=== PATIENT | male | born 1945 | race Caucasian/White ===

== ENCOUNTER 2024-12-29 14:40 | Emergency (ER) | payer MEDICARE, OTHER, SELFPAY ==
--- NOTE | ~2024-12-29 | CT_ITS ---
EXAMINATION: CT brain wo [place], 12/29/2024 17:20 INDUSTRIAL HYGIENIST HISTORY: confusion COMPARISON: No comparisons available. Technique: Axial images obtained of the brain without contrast. One or more of the following dose reduction techniques were used: automated exposure control, adjustment of the mA and/or kV according to patient size, use of iterative reconstruction technique. 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 No acute infarct or hemorrhage. No midline shift or mass effect. No extra-axial fluid collections. Mastoid air cells unremarkable. Sinuses and orbits unremarkable. No acute fracture. No significant facial or scalp soft tissue swelling evident. No radiopaque foreign body is seen. Impression: 1.No acute intracranial abnormality. Reviewed, dictated and finalized at location P. STRIAL HYGIENIST Impression: 1.No acute intracranial abnormality.
--- NOTE | ~2024-12-29 | XR_ITS ---
EXAMINATION: XR chest 2V, 12/29/2024 15:34 [employer] EM[employer] AUTOMOTIVE TECHNICIAN HISTORY: SOB COMPARISON: No comparisons available. Technique: 2 views obtained. Findings: Mild pulmonary venous congestion. Trace bilateral pleural effusions. No pneumothorax. Mild cardiomegaly. Mediastinal and hilar contours are within normal limits. Poststernotomy. Left pacemaker. Impression: Mild CHF Reviewed, dictated and finalized at location P. [employer] AUTOMOTIVE TECHNICIAN Impression: Mild CHF
--- OUTSIDE RECORDS SUMMARY | 2024-12-29 14:43 | XMS_ITS | Encounter Summary ---
Author Organization [facility] Health Address [address] [address] Care Team Providers Care Director Of Psychology Name Role Phone Missy Hutson RN Unavailable González Rocha MD Unavailable Huber Nguyen MD Unavailable Damon Barakat MD Unavailable [phone] Ruma Parnell Primary Care Pr ovider Damon Barakat MD Unavailable [phone] Damon Barakat MD Unavailable [phone] Ruma Parnell Unavailable Encounter Details Date Type Department Care Team (Late st Contact Info) Description 11/09/2012 [facility] Damon Barakat MD [address] [facility] [address] [place] [address] Social History Tobacco Use Types Packs/Day Years Used Date Smoking Tobacco: Never Smokeless Tobacco: Never Alcohol Use Standard Drinks/Week Comments No 0 (1 standard drink = 0.6 oz pur e alcohol) rare Sex and Gender Information Value Date Recorded Sex Assigned at Not on file Legal Sex Male 8:54 AM CDT Gender Identity Not on file Sexual Orientation Not on file documented as of this encounter Plan of Treatment Upcoming Encounters Date Type Department Care Team (Late st Contact Info) Description 01/30/2025 7:00 AM GLOBAL LOGISTICS ANALYST Clinical Support [facility] [address] [place] [address] [address] [place] [address] 05/01/2025 7:00 AM CDT Clinical Support [facility] [address] [place] [address] [address] [place] [address] 05/16/2025 1:00 PM CDT Office Visit [facility] [address] [place] [address] [address] [place] [address] González Rocha MD [address] [place] [address] [place] [address] 07/31/2025 7:00 AM CDT Clinical Support [facility] [address] [place] [address] [address] [place] [address] documented as of this encounter Visit Diagnoses Not on filedocumented in this encounter Care Teams Director Of Psychology Relationship Specialty Start Date End Date Ruma Parnell PA [address] [place] [address] PCP - General Physician Fire Safety Manager 03/08/15 Damon Barakat MD [address] [place] [address] [place] [address] PCP - Attributed-MSSP 11/22/18 05/28/19 Damon Barakat MD [address] [place] [address] [place] [address] PCP - Attributed-MSSP 07/23/18 09/21/18 Ruma Parnell PA [address] [place] [address] PCP - Attributed-MSSP 09/22/18 11/21/18 Missy Hutson, RN Admissions Evaluator 12/29/13 González Rocha MD [address] [place] [address] [place] [address] Time Study Clerk Cardiology 02/02/14 Huber Nguyen MD [address] [place] [address] [place] [address] Consulting Physician Electrophysiology 02/02/14 Damon Barakat MD [address] [place] [address] [place] [address] Cardiovascular Disease 05/25/14 documented as of this encounter
--- OUTSIDE RECORDS SUMMARY | 2024-12-29 14:43 | XMS_ITS | Encounter Summary ---
Author Organization [facility] Health Address [address] [place] [address] Care Team Providers Care Emt I/99 Name Role Phone Missy Hutson RN Unavailable González Rocha MD Unavailable Huber Nguyen MD Unavailable Damon Barakat MD Unavailable [phone] Ruma Parnell Primary Care Pr ovider Damon Barakat MD Unavailable [phone] Damon Barakat MD Unavailable [phone] Ruma Parnell Unavailable Encounter Details Date Type Department Care Team (Late st Contact Info) Description 12/02/2012 [facility] Damon Barakat MD [address] [facility] [address] [place] [address] Social History Tobacco Use Types Packs/Day Years [...] st Contact Info) Description 01/30/2025 7:00 AM [employer] Clinical Support [facility] [address] [place] [address] [address] [place] [address] 05/01/2025 7:00 AM CDT Clinical Support [facility] [address] [place] [address] [address] [place] [address] 05/16/2025 1:00 PM CDT Office Visit [facility] [address] [place] [address] [address] [place] [address] González Rocha MD [address] [place] [address] [place] [address] 07/31/2025 7:00 AM CDT Clinical Support [facility] [address] [place] [address] [address] [place] [address] documented as of this encounter Visit Diagnoses Not on filedocumented in this encounter Care Teams Emt I/99 Relationship Specialty Start Date End Date Ruma Parnell PA [address] [place] [address] PCP - General Physician Vegetable Inspector 03/08/15 Damon Barakat MD [address] [place] [address] [place] [address] PCP - Attributed-MSSP 11/22/18 05/28/19 Damon Barakat MD [address] [place] [address] [place] [address] PCP - Attributed-MSSP 07/23/18 09/21/18 Ruma Parnell PA [address] [place] [address] PCP - Attributed-MSSP 09/22/18 11/21/18 Missy Hutson, RN Terminal Makeup Operator 12/29/13 González Rocha MD [address] [place] [address] [place] [address] Turning Lathe Tender Cardiology 02/02/14 Huber Nguyen MD [address] [place] [address] [place] [address] Consulting Physician Electrophysiology 02/02/14 Damon Barakat MD [address] [place] [address] [place] [address] Cardiovascular Disease 05/25/14 documented as of this encounter
[2024-12-29 14:44] VITALS: BP 121/68; PULSE 150; RESP 16; TEMP 38; O2SAT 95
--- OUTSIDE RECORDS SUMMARY | 2024-12-29 14:44 | XMS_ITS | Clinical Summary ---
Author Organization [facility] on Address [address] [facility] [place] [address] Phone Care Team Providers Care Nuts And Bolts Assembler Name Role Phone Ruma Smith Primary Care Provider [phone] Allergies Active Allergy Reactions Criticality Noted Date Comments Penicillins Hives High 11/02/2016 Medications acyclovir (ZOVIRAX) 400 mg tablet Take 400 mg by mouth 2 times daily. Active carvedilol (COREG) 6.25 mg tablet Take 6.25 mg by mouth 2 times daily with meals. Active LISINOPRIL ORAL Take by mouth. Active LORazepam (ATIVAN) 0.5 mg tablet Take 0.5 mg by mouth every 8 hours as needed for Anxiety. Active Social History Tobacco Use Types Packs/Day Years Used Date Smoking Tobacco: Never Smokeless Tobacco: Never Alcohol Use Standard Drinks/Week Comments No 0 (1 standard drink = 0.6 oz pur e alcohol) Sex and Gender Information Value Date Recorded Sex Assigned at Not on file Legal Sex Male 6:24 PM CDT Gender Identity Not on file Sexual Orientation Not on file Last Filed Vital Signs Vital Sign Reading Time Taken Comments Blood Pressure 111/76 11/02/2016 8:45 PM CDT Pulse 71 11/02/2016 8:45 PM CDT Temperature 36.7 C (98 F) 11/02/2016 6:53 PM CDT Respiratory Rate 18 11/02/2016 6:53 PM CDT Oxygen Saturation 100% 11/02/2016 8:45 PM CDT Inhaled Oxygen Concentration - - Weight 81.6 kg (180 lb) 11/02/2016 6:53 PM CDT Height 167.6 cm (5' 6) 11/02/2016 6:53 PM CDT Body Mass Index 29.05 11/02/2016 6:53 PM CDT Plan of Treatment Health Maintenance Due Date Last Done Comments DTAP/TDAP/TD VACCINES (1 - Tdap) 1965 PNEUMOCOCCAL VACCINE 50+ YEARS (1 of 1 - PCV) 12/25/18 97 ZOSTER VACCINE (1 of 2) 1996 RSV VACCINE (60+ or ) (1 - 1-dose 75+ series) 2021 INFLUENZA VACCINE (#1) 2024 Insurance MEDICARE PART A AND B [facility] Care Teams Nuts And Bolts Assembler Relationship Specialty Start Date End Date Ruma Smith PA PCP - General Physician Maintenance Mechanic [place] 11/02/16
--- OUTSIDE RECORDS SUMMARY | 2024-12-29 14:44 | XMS_ITS | Data Portability ---
Author Organization [facility], Main Office Address [address] [place] [address] Care Team Providers Care Window Dresser Name Role Phone RUMA SMITH Primary Care Provider [phone] RMUA SMITH Referring Provider [phone] Assessment Encounter Date Assessment Date Assessment LastModified by Organization Details LastModified Time 02/01/2023 02/01/2023 Colonoscopy 2019. Not available 02/01/2023 11:30:04 Plan of Treatment Reminders Order Date Submit Date Provider Last Modified By Organization Details Last Modified Time Details Appointments None recorded. Lab lipid panel, serum 2022 023 [facility], [address], [address], [place], [address], 3 05:45:22 HbA1c (hemoglobin A1c), blood 2022 023 [facility], [address], [address], [place], [address], 3 05:45:24 hepatic function panel, serum 2022 023 [facility], [address], [address], [place], [address], 3 05:45:25 CBC w/ auto diff 2022 023 [facility], [address], [address], [place], [address], 3 05:45:26 TSH + free T4, serum 2022 023 [facility], [address], [address], [place], [address], 3 05:45:20 PSA, serum or plasma 2022 023 [facility], [address], [address], [place], [address], 3 05:45:27 BMP, serum or plasma 2022 023 [facility], [address], [address], [place], [address], 3 05:45:[address] referral 2022 023 [email or web address], [address] [place] [address], [address], 4 09:13:57 general surgeon referral - Please call pt to schedule appt. Thank you 2022 023 [email or web address] 7 Aileen Sanderson MD, [address] [facility], [facility] [address], [place], [address], 3 10:08:40 Procedures None recorded. Surgeries None recorded. Imaging None recorded. Medication Orders lorazepam 0.5 mg tablet 2022 023 [facility], [address] [place] [address], [address], 3 13:24:55 tramadol 50 mg tablet 2022 023 [facility], [facility] [place], [address], 3 13:24:55 Patient TargetsNo targets recorded. Patient Instructions Encounter Date Encounter Id Patient Instructions Last Modified By Organization Details Last Modified Time 07/31/2022 [id number] dementia rating scale-2* [email or web address] Not available 07/31/2022 11:48:38 multi-dimensiona l health assessment questionnaire* gil Not available 07/31/2022 11:48:43 care plan* [email or web address] Not available 11:48:47 advance care planning: care instructions Not available 07/31/2022 10:51:02 advance directiv es: care instructions Not available 07/31/2022 10:51:02 [place] Advance Directives Not available 07/31/2022 10:51:02 Personalized a lt Plan and Screening Recommendations Advance Directives - Do you have one? Yes Advance Directives - Do we have your advance directive on file in your health record? No, please bring in a copy at your earliest convenience Primary Prevention/Interven tion (prevents or decreases the chance of common diseases from occurring) Smoking Risk: Non Smoker Alcohol Misuse Screening: Negative Weight: Appropriate Physical activity: Appropriate physical activity Nutrition: Average Fall Risk (screened today): Low Vaccines Pneumococcal: No further needed Influenza: Your next one in the fall of this year Chronic Disease Risks Stroke: High Risk Active diagnosis, Continue current treatment plan Heart Attack: High Risk Active diagnosis, Continue current treatment plan Clogging of the Arteries: High risk Active diagnosis, Continue current treatment plan Diabetes: High Risk Active diagnosis, Continue current treatment plan Secondary Prevention/Interven tion (detects treatable diseases before they may cause symptoms, disability, or ) Prostate Cancer Screening: Your next PSA in: nov 2022 Colon Cancer Screening: Colonoscopy In: 2018 Date Screening Last Performed: Eye Disease Screening: Recommended today Dementia Risk: Low Depression Screening: Negative Active diagnosis, Continue current treatment plan Not available 08/19/2022 22:52:42 Reason for Referral General Surgeon Referral for Cholelithiasis without obstruction Please call pt to schedule appt. Thank you Referring Physician: Ruma Smith, Internal Medicine, Encounter Date: 05/08/2022 Fixed Income Manager Referral for L esion of skin of face Referring Physician: Ruma Smith, Internal Medicine, Encounter Date: 02/01/2023 Results Created Date Observation Date Name Description Value Unit Range Abnormal Flag Note LastModifiedBy Organization Detail LastModifiedTime 06/28/19 22 06/28/2021 CBC (INCL UDES DIFF/ PLT) white blood cell count 4.8 thous and/u L 3.8-10 .8 normal Not Available [address], [address], 06/28/2021 04:03:54 06/28/19 22 06/28/2021 CBC (INCL UDES DIFF/ PLT) red blood cell count 4.18 marie on/uL 4.20-5 .80 low Not Available [facility] [address], [address], 06/28/2021 04:03:54 06/28/19 22 06/28/2021 CBC (INCL UDES DIFF/ PLT) hemoglobin 12.7 g/dL 13.2-1 7.1 low Not Available [facility] [address], [address], 06/28/2021 04:03:54 06/28/19 22 06/28/2021 CBC (INCL UDES DIFF/ PLT) hematocrit 39.0 % 38.5-5 0.0 normal Not Available [facility] [address], [address], 06/28/2021 04:03:54 06/28/19 22 06/28/2021 CBC (INCL UDES DIFF/ PLT) MCV 93.3 fL 80.0-1 00.0 normal Not Available [facility] [address], [address], 06/28/2021 04:03:54 06/28/19 22 06/28/2021 CBC (INCL UDES DIFF/ PLT) MCH 30.4 pg 27.0-3 3.0 normal Not Available [facility] [address], [address], 06/28/2021 04:03:54 06/28/19 22 06/28/2021 CBC (INCL UDES DIFF/ PLT) MCHC 32.6 g/dL 32.0-3 6.0 normal Not Available [address], [address], 06/28/2021 04:03:54 06/28/19 22 06/28/2021 CBC (INCL UDES DIFF/ PLT) RDW 12.9 % 11.0-1 5.0 normal Not Available [address], [address], 06/28/2021 04:03:54 06/28/19 22 06/28/2021 CBC (INCL UDES DIFF/ PLT) platelet count 170 thous and/u L 140-40 0 normal Not Available [address], [address], 06/28/2021 04:03:54 06/28/19 22 06/28/2021 CBC (INCL UDES DIFF/ PLT) MPV 11.7 fL 7.5-12 .5 normal Not Available [address], [address], 06/28/2021 04:03:54 06/28/19 22 06/28/2021 CBC (INCL UDES DIFF/ PLT) absolute neutrophils 3221 cells /uL 1500-7 800 normal Not Available [address], [address], 06/28/2021 04:03:54 06/28/19 22 06/28/2021 CBC (INCL UDES DIFF/ PLT) absolute lymphocytes 1013 cells /uL 850-39 00 normal Not Available [address], [address], 06/28/2021 04:03:54 06/28/19 22 06/28/2021 CBC (INCL UDES DIFF/ PLT) absolute monocytes 394 cells /uL 200-95 0 normal Not Available [facility] [address], [address], 06/28/2021 04:03:54 06/28/19 22 06/28/2021 CBC (INCL UDES DIFF/ PLT) absolute eosinophils 101 cells /uL 15-500 normal Not Available [facility] [address], [address], 06/28/2021 04:03:54 06/28/19 22 06/28/2021 CBC (INCL UDES DIFF/ PLT) absolute basophils 72 cells /uL 0-200 normal Not Available [facility] [address], [address], 06/28/2021 04:03:54 06/28/19 22 06/28/2021 CBC (INCL UDES DIFF/ PLT) neutrophils 67.1 % normal Not Available [facility] [address], [address], 06/28/2021 04:03:54 06/28/19 22 06/28/2021 CBC (INCL UDES DIFF/ PLT) lymphocytes 21.1 % normal Not Available [facility] [address], [address], 06/28/2021 04:03:54 06/28/19 22 06/28/2021 CBC (INCL UDES DIFF/ PLT) monocytes 8.2 % normal Not Available [facility] [address], [address], 06/28/2021 04:03:54 06/28/19 22 06/28/2021 CBC (INCL UDES DIFF/ PLT) eosinophils 2.1 % normal Not Available [facility] [address], [address], 06/28/2021 04:03:54 06/28/19 22 06/28/2021 CBC (INCL UDES DIFF/ PLT) basophils 1.5 % normal Your reque st to have a dupli kennedy copy faxed has been rayna wledg ed. Queue d to: [phone] Not Available [address], [address], 06/28/2021 04:03:54 06/28/19 22 06/28/2021 HEPAT IC FUNCT ION PANEL protein, total 6.3 g/dL 6.1-8. 1 normal Not Available [address], [address], 06/28/2021 04:03:54 06/28/19 22 06/28/2021 HEPAT IC FUNCT ION PANEL albumin 4.0 g/dL 3.6-5. 1 normal Not Available [address], [address], 06/28/2021 04:03:54 06/28/19 22 06/28/2021 HEPAT IC FUNCT ION PANEL globulin 2.3 g/dL_ (calc ) 1.9-3. 7 normal Not Available [address], [address], 06/28/2021 04:03:54 06/28/19 22 06/28/2021 HEPAT IC FUNCT ION PANEL albumin/glob ulin ratio 1.7 (calc ) 1.0-2. 5 normal Not Available [address], [address], 06/28/2021 04:03:54 06/28/19 22 06/28/2021 HEPAT IC FUNCT ION PANEL bilirubin, total 0.7 mg/dL 0.2-1. 2 normal Not Available [address], [address], 06/28/2021 04:03:54 06/28/19 22 06/28/2021 HEPAT IC FUNCT ION PANEL bilirubin, direct 0.1 mg/dL < or = 0.2 normal Not Available [facility] - [address], [address], 06/28/2021 04:03:54 06/28/19 22 06/28/2021 HEPAT IC FUNCT ION PANEL bilirubin, indirect 0.6 mg/dL _(shawn c) 0.2-1. 2 normal Not Available [address], [address], 06/28/2021 04:03:54 06/28/19 22 06/28/2021 HEPAT IC FUNCT ION PANEL alkaline phosphatase 83 U/L 35-144 normal Not Available [facility] [address], [address], 06/28/2021 04:03:54 06/28/19 22 06/28/2021 HEPAT IC FUNCT ION PANEL AST 14 U/L 10-35 normal Not Available [address], [address], 06/28/2021 04:03:54 06/28/19 22 06/28/2021 HEPAT IC FUNCT ION PANEL ALT 7 U/L 9-46 low Not Available [facility] [address], [address], 06/28/2021 04:03:54 06/28/19 22 06/28/2021 BASIC METAB OLIC PANEL glucose 98 mg/dL 65-99 normal Fasti ng refer ence inter genie Not Available [address], [address], 06/28/2021 04:03:54 06/28/19 22 06/28/2021 BASIC METAB OLIC PANEL urea nitrogen (BUN) 15 mg/dL 7-25 normal Not Available [facility] [address], [address], 06/28/2021 04:03:54 06/28/19 22 06/28/2021 BASIC METAB OLIC PANEL creatinine 1.41 mg/dL 0.70-1 .18 high For patie nts >49 years of age, the refer ence limit for Creat inine is appro ximat javed 13% highe r for peopl e ident ified as Afric an-Am srinivasa n. Not Available [address], [address], 06/28/2021 04:03:54 06/28/19 22 06/28/2021 BASIC METAB OLIC PANEL eGFR non-afr. macedonian 49 mL/mi n/1.7 3m2 > or = 60 low Not Available [facility] [address], [address], 06/28/2021 04:03:54 06/28/19 22 06/28/2021 BASIC METAB OLIC PANEL eGFR 56 mL/mi n/1.7 3m2 > or = 60 low Not Available [address], [address], 06/28/2021 04:03:54 06/28/19 22 06/28/2021 BASIC METAB OLIC PANEL BUN/creatini ne ratio 11 (calc ) 6-22 normal Not Available [address], [address], 06/28/2021 04:03:54 06/28/19 22 06/28/2021 BASIC METAB OLIC PANEL sodium 138 mmol/ L 135-14 6 normal Not Available [address], [address], 06/28/2021 04:03:54 06/28/19 22 06/28/2021 BASIC METAB OLIC PANEL potassium 4.6 mmol/ L 3.5-5. 3 normal Not Available [address], [address], 06/28/2021 04:03:54 06/28/19 22 06/28/2021 BASIC METAB OLIC PANEL chloride 104 mmol/ L 98-110 normal Not Available [address], [address], 06/28/2021 04:03:54 06/28/19 22 06/28/2021 BASIC METAB OLIC PANEL carbon dioxide 29 mmol/ L 20-32 normal Not Available [address], [address], 06/28/2021 04:03:54 06/28/19 22 06/28/2021 BASIC METAB OLIC PANEL calcium 8.9 mg/dL 8.6-10 .3 normal Not Available [address], [address], 06/28/2021 04:03:54 06/28/19 22 06/28/2021 LIPID PANEL WITH RATIO S cholesterol, total 152 mg/dL <200 normal Not Available [address], [address], 06/28/2021 04:03:53 06/28/19 22 06/28/2021 LIPID PANEL WITH RATIO S HDL cholesterol 57 mg/dL > or = 40 normal Not Available [address], [address], 06/28/2021 04:03:53 06/28/19 22 06/28/2021 LIPID PANEL WITH RATIO S triglyceride s 75 mg/dL <150 normal Not Available [address], [address], 06/28/2021 04:03:53 06/28/19 22 06/28/2021 LIPID PANEL WITH RATIO S LDL-choleste rol 79 mg/dL _(shawn c) normal Refer ence range : <100 Edgardo able range <100 mg/dL for prima ry preve ntion ; <70 mg/dL for patie nts with CHD or diabe tic patie nts with > or = 2 CHD risk facto rs. LDL-C is now calcu lated using the Amaris n-Hop kins calcu tram n, which is a valid ated novel metho d provi champ velazquezte r accur acy than the Fried andrae equat ion in the estim ation of LDL-C . Amaris n SS et al. MANUEL. 2013; 310(1 9): 2061- 2068 (http ://ed ucati on.Qu itzelVilma concepciónSt. Teresa Medical. com/f aq/FA Q164) Not Available [facility] [address] [address] [place], [address], 06/28/2021 04:03:53 06/28/19 22 06/28/2021 LIPID PANEL WITH RATIO S chol/HDLC ratio 2.7 (calc ) <5.0 normal Not Available [facility] [address], [address], 06/28/2021 04:03:53 06/28/19 22 06/28/2021 LIPID PANEL WITH RATIO S LDL/HDL ratio 1.4 (calc ) Below [place] ge Risk: <2.28 [place] ge Risk: 2.29- 4.90 Moder ate Risk: 4.91- 7.12 High Risk: >7.13 Not Available [facility] [address] [address] [facility] [place], [address], 06/28/2021 04:03:53 06/28/19 22 06/28/2021 LIPID PANEL WITH RATIO S non HDL cholesterol 95 mg/dL _(shawn c) <130 normal For patie nts with diabe denisse plus 1 major ASCVD risk facto r, treat ing to a non-H DL-C goal of <100 mg/dL (LDL- C of <70 mg/dL ) is consi dered a thera peuti c optio n. Not Available [employer] [address] [address] [place], [address], 06/28/2021 04:03:53 01/10/20 22 01/10/2022 URINA LYSIS , COMPL ETE color dark yellow yellow normal Not Available [employer] [address] [address] [place], [address], 01/10/2022 08:48:59 01/10/20 22 01/10/2022 URINA LYSIS , COMPL ETE appearance cloudy clear abnormal Not Available [address], [address], 01/10/2022 08:48:59 01/10/20 22 01/10/2022 URINA LYSIS , COMPL ETE specific gravity 1.021 1.001- 1.035 normal Not Available [address], [address], 01/10/2022 08:48:59 01/10/20 22 01/10/2022 URINA LYSIS , COMPL ETE pH 6.0 5.0-8. 0 normal Not Available [address], [address], 01/10/2022 08:48:59 01/10/20 22 01/10/2022 URINA LYSIS , COMPL ETE glucose 2+ negati ve abnormal Not Available [address], [address], 01/10/2022 08:48:59 01/10/20 22 01/10/2022 URINA LYSIS , COMPL ETE bilirubin 1+ negati ve abnormal Presu mptiv e posit gregg bilir ubin. Consi saad confi rmati on by serum bilir ubin if clini son indic ated. Not Available [address], [address], 01/10/2022 08:48:59 01/10/20 22 01/10/2022 URINA LYSIS , COMPL ETE ketones trace negati ve abnormal Not Available [address], [address], 01/10/2022 08:48:59 01/10/20 22 01/10/2022 URINA LYSIS , COMPL ETE occult blood negati ve negati ve normal Not Available [address], [place], [address], 01/10/2022 08:48:59 01/10/20 22 01/10/2022 URINA LYSIS , COMPL ETE protein 2+ negati ve abnormal Not Available [address], [address], 01/10/2022 08:48:59 01/10/20 22 01/10/2022 URINA LYSIS , COMPL ETE nitrite negati ve negati ve normal Not Available [address], [address], 01/10/2022 08:48:59 01/10/20 22 01/10/2022 URINA LYSIS , COMPL ETE leukocyte esterase trace negati ve abnormal Not Available [address], [address], 01/10/2022 08:48:59 01/10/20 22 01/10/2022 URINA LYSIS , COMPL ETE WBC 0-5 /hpf < or = 5 normal Not Available [address], [address], 01/10/2022 08:48:59 01/10/20 22 01/10/2022 URINA LYSIS , COMPL ETE RBC none seen /hpf < or = 2 normal Not Available [address], [address], 01/10/2022 08:48:59 01/10/20 22 01/10/2022 URINA LYSIS , COMPL ETE squamous epithelial cells 6-10 /hpf < or = 5 abnormal Not Available [address], [address], 01/10/2022 08:48:59 01/10/20 22 01/10/2022 URINA LYSIS , COMPL ETE bacteria none seen /hpf none seen normal Not Available [address], [address], 01/10/2022 08:48:59 01/10/20 22 01/10/2022 URINA LYSIS , COMPL ETE hyaline cast > 60 /lpf none seen abnormal Not Available [address], [address], 01/10/2022 08:48:59 01/10/20 22 01/10/2022 CBC (INCL UDES DIFF/ PLT) white blood cell count 6.4 thous and/u L 3.8-10 .8 normal Not Available [address], [address], 01/10/2022 08:48:58 01/10/20 22 01/10/2022 CBC (INCL UDES DIFF/ PLT) red blood cell count 4.32 marie on/uL 4.20-5 .80 normal Not Available [address], [address], 01/10/2022 08:48:58 01/10/20 22 01/10/2022 CBC (INCL UDES DIFF/ PLT) hemoglobin 13.5 g/dL 13.2-1 7.1 normal Not Available [address], [address], 01/10/2022 08:48:58 01/10/20 22 01/10/2022 CBC (INCL UDES DIFF/ PLT) hematocrit 39.2 % 38.5-5 0.0 normal Not Available [address], [address], 01/10/2022 08:48:58 01/10/20 22 01/10/2022 CBC (INCL UDES DIFF/ PLT) MCV 90.7 fL 80.0-1 00.0 normal Not Available [address], [address], 01/10/2022 08:48:58 01/10/20 22 01/10/2022 CBC (INCL UDES DIFF/ PLT) MCH 31.3 pg 27.0-3 3.0 normal Not Available [address], [address], 01/10/2022 08:48:58 01/10/20 22 01/10/2022 CBC (INCL UDES DIFF/ PLT) MCHC 34.4 g/dL 32.0-3 6.0 normal Not Available [address], [address], 01/10/2022 08:48:58 01/10/20 22 01/10/2022 CBC (INCL UDES DIFF/ PLT) RDW 12.3 % 11.0-1 5.0 normal Not Available [address], [address], 01/10/2022 08:48:58 01/10/20 22 01/10/2022 CBC (INCL UDES DIFF/ PLT) platelet count 198 thous and/u L 140-40 0 normal Not Available [address], [address], 01/10/2022 08:48:58 01/10/20 22 01/10/2022 CBC (INCL UDES DIFF/ PLT) MPV 12.0 fL 7.5-12 .5 normal Not Available [address], [address], 01/10/2022 08:48:58 01/10/20 22 01/10/2022 CBC (INCL UDES DIFF/ PLT) absolute neutrophils 4320 cells /uL 1500-7 800 normal Not Available [address], [address], 01/10/2022 08:48:58 01/10/20 22 01/10/2022 CBC (INCL UDES DIFF/ PLT) absolute lymphocytes 1222 cells /uL 850-39 00 normal Not Available [address] [place], [address], 01/10/2022 08:48:58 01/10/20 22 01/10/2022 CBC (INCL UDES DIFF/ PLT) absolute monocytes 691 cells /uL 200-95 0 normal Not Available [facility] [address], [address], 01/10/2022 08:48:58 01/10/20 22 01/10/2022 CBC (INCL UDES DIFF/ PLT) absolute eosinophils 83 cells /uL 15-500 normal Not Available [facility] [address], [address], 01/10/2022 08:48:58 01/10/20 22 01/10/2022 CBC (INCL UDES DIFF/ PLT) absolute basophils 83 cells /uL 0-200 normal Not Available [facility] [address], [address], 01/10/2022 08:48:58 01/10/20 22 01/10/2022 CBC (INCL UDES DIFF/ PLT) neutrophils 67.5 % normal Not Available [address], [address], 01/10/2022 08:48:58 01/10/20 22 01/10/2022 CBC (INCL UDES DIFF/ PLT) lymphocytes 19.1 % normal Not Available [address], [address], 01/10/2022 08:48:58 01/10/20 22 01/10/2022 CBC (INCL UDES DIFF/ PLT) monocytes 10.8 % normal Not Available [address], [address], 01/10/2022 08:48:58 01/10/20 22 01/10/2022 CBC (INCL UDES DIFF/ PLT) eosinophils 1.3 % normal Not Available [facility] [address] [place], [address], 01/10/2022 08:48:58 01/10/20 22 01/10/2022 CBC (INCL UDES DIFF/ PLT) basophils 1.3 % normal Not Available [address], [address], 01/10/2022 08:48:58 01/10/20 22 01/10/2022 T4, FREE T4, free 1.4 NG/dL 0.8-1. 8 normal Not Available [address], [address], 01/10/2022 08:48:58 01/10/20 22 01/10/2022 TSH TSH 1.60 mIU/L 0.40-4 .50 normal Not Available [address], [address], 01/10/2022 08:48:57 01/10/20 22 01/10/2022 HEPAT IC FUNCT ION PANEL protein, total 6.9 g/dL 6.1-8. 1 normal Not Available [address], [address], 01/10/2022 08:48:57 01/10/20 22 01/10/2022 HEPAT IC FUNCT ION PANEL albumin 4.0 g/dL 3.6-5. 1 normal Not Available [address], [address], 01/10/2022 08:48:57 01/10/20 22 01/10/2022 HEPAT IC FUNCT ION PANEL globulin 2.9 g/dL_ (calc ) 1.9-3. 7 normal Not Available [address], [address], 01/10/2022 08:48:57 01/10/20 22 01/10/2022 HEPAT IC FUNCT ION PANEL albumin/glob ulin ratio 1.4 (calc ) 1.0-2. 5 normal Not Available [address] [address] [place], [address], 01/10/2022 08:48:57 01/10/20 22 01/10/2022 HEPAT IC FUNCT ION PANEL bilirubin, total 1.0 mg/dL 0.2-1. 2 normal Not Available [address] [address] [place], [address], 01/10/2022 08:48:57 01/10/20 22 01/10/2022 HEPAT IC FUNCT ION PANEL bilirubin, direct 0.2 mg/dL < or = 0.2 normal Not Available [address] [address] [place], [address], 01/10/2022 08:48:57 01/10/2001/10/2022 HEPAT IC FUNCT ION PANEL bilirubin, indirect 0.8 mg/dL _(shawn c) 0.2-1. 2 normal Not Available [address] [address] [place], [address], 01/10/2022 08:48:57 01/10/20 22 01/10/2022 HEPAT IC FUNCT ION PANEL alkaline phosphatase 88 U/L 35-144 normal Not Available [facility] [address] [address] [place], [address], 01/10/2022 08:48:57 01/10/20 22 01/10/2022 HEPAT IC FUNCT ION PANEL AST 13 U/L 10-35 normal Not Available [address] [address] [place], [address], 01/10/2022 08:48:57 01/10/20 22 01/10/2022 HEPAT IC FUNCT ION PANEL ALT 7 U/L 9-46 low Not Available [address] [address] [place], [address], 01/10/2022 08:48:57 01/10/20 22 01/10/2022 BASIC METAB OLIC PANEL potassium 4.7 mmol/ L 3.5-5. 3 normal Not Available [address], [address], 01/10/2022 08:48:57 01/10/20 22 01/10/2022 BASIC METAB OLIC PANEL chloride 103 mmol/ L 98-110 normal Not Available [address], [address], 01/10/2022 08:48:57 01/10/20 22 01/10/2022 BASIC METAB OLIC PANEL carbon dioxide 26 mmol/ L 20-32 normal Not Available [address], [address], 01/10/2022 08:48:57 01/10/2001/10/2022 BASIC METAB OLIC PANEL calcium 9.1 mg/dL 8.6-10 .3 normal Not Available [address], [address], 01/10/2022 08:48:57 01/10/20 22 01/10/2022 BASIC METAB OLIC PANEL glucose 75 mg/dL 65-99 normal Fasti ng refer ence inter genie Not Available [address], [address], 01/10/2022 08:48:57 01/10/20 22 01/10/2022 BASIC METAB OLIC PANEL urea nitrogen (BUN) 16 mg/dL 7-25 normal Not Available [address], [address], 01/10/2022 08:48:57 01/10/20 22 01/10/2022 BASIC METAB OLIC PANEL creatinine 2.03 mg/dL 0.70-1 .28 high Not Available [address], [address], 01/10/2022 08:48:57 01/10/20 22 01/10/2022 BASIC METAB OLIC PANEL eGFR 34 mL/mi n/1.7 3m2 > or = 60 low The eGFR is based on the CKD-E PI 2020 equat ion. To calcu late the new eGFR from a previ ous Creat inine or Cysta tin C resul t, go to https ://richardson peña.evelyn shah.o yary/kishor douglasess derrickal s/ kdoqi /gfr% 5Fcal culat or Not Available [address] [address] [place], [address], 01/10/2022 08:48:57 01/10/20 22 01/10/2022 BASIC METAB OLIC PANEL BUN/creatini ne ratio 8 (calc ) 6-22 normal Not Available [address] [address] [place], [address], 01/10/2022 08:48:57 01/10/20 22 01/10/2022 BASIC METAB OLIC PANEL sodium 138 mmol/ L 135-14 6 normal Not Available [address] [address] [place], [address], 01/10/2022 08:48:57 01/10/20 22 01/10/2022 LIPID PANEL WITH RATIO S cholesterol, total 148 mg/dL <200 normal Not Available [facility] [address] [address] [place], [address], 01/10/2022 08:48:56 01/10/20 22 01/10/2022 LIPID PANEL WITH RATIO S HDL cholesterol 51 mg/dL > or = 40 normal Not Available [facility] [address] [address] [place], [address], 01/10/2022 08:48:56 01/10/20 22 01/10/2022 LIPID PANEL WITH RATIO S triglyceride s 92 mg/dL <150 normal Not Available [employer] [place] [address] [place], [address], 01/10/2022 08:48:56 01/10/20 22 01/10/2022 LIPID PANEL WITH RATIO S LDL-choleste rol 79 mg/dL _(shawn c) normal Refer ence range : <100 Edgardo able range <100 mg/dL for prima ry preve ntion ; <70 mg/dL for patie nts with CHD or diabe tic patie nts with > or = 2 CHD risk facto rs. LDL-C is now calcu lated using the Amaris n-Hop kins calcu tram n, which is a valid ated novel kimberleyo d reidi champ ender r accur acy than the Fried andrae equat ion in the estim ation of LDL-C . Amaris orozco SS et al. MANUEL. 2013; 310(1 9): 2061- 2068 (http ://ed ucati on.Qu itzelCodeNgo. com/f aq/FA Q164) Not Available [employer] [facility] [address] [place], [address], 01/10/2022 08:48:56 01/10/2001/10/2022 LIPID PANEL WITH RATIO S chol/HDLC ratio 2.9 (calc ) <5.0 normal Not Available [employer] [facility] [address] [place], [address], 01/10/2022 08:48:56 01/10/20 22 01/10/2022 LIPID PANEL WITH RATIO S LDL/HDL ratio 1.5 (calc ) Below [place] ge Risk: <2.28 [place] ge Risk: 2.29- 4.90 Moder ate Risk: 4.91- 7.12 High Risk: >7.13 Not Available [employer] [facility] [address] [place], [address], 01/10/2022 08:48:56 01/10/2001/10/2022 LIPID PANEL WITH RATIO S non HDL cholesterol 97 mg/dL _(shawn c) <130 normal For patie nts with diabe denisse plus 1 major ASCVD risk facto r, treat ing to a non-H DL-C goal of <100 mg/dL (LDL- C of <70 mg/dL ) is consi johnnyd a thera peuti alvaro optio n. Not Available [facility] [address] [place] [address] [place], [address], 01/10/2022 08:48:56 07/23/1907/23/2022 LIPID PANEL , STAND HERMINIO cholesterol, total 161 mg/dL <200 normal Not Available [facility] [address] [address] [place], [address], 07/23/2022 07:45:48 07/23/19 23 07/23/2022 LIPID PANEL , STAND HERMINIO HDL cholesterol 58 mg/dL > or = 40 normal Not Available [facility] [address] [place] [address] [place], [address], 07/23/2022 07:45:48 07/23/19 23 07/23/2022 LIPID PANEL , STAND HERMINIO triglyceride s 73 mg/dL <150 normal Not Available [facility] [address] [address] [address], [place], [address], 07/23/2022 07:45:48 07/23/1907/23/2022 LIPID PANEL , STAND HERMINIO LDL-choleste rol 87 mg/dL _(shawn c) normal Refer ence range : <100 Edgardo able range <100 mg/dL for prima ry preve ntion ; <70 mg/dL for patie nts with CHD or diabe tic patie nts with > or = 2 CHD risk facto rs. LDL-C is now calcu lated using the Amaris n-Hop kins calcu latnathanael n, which is a valid ated novel metho d provi ding ender r accur acy than the Fried andrae equat ion in the estim ation of LDL-C . Amaris orozco SS et al. MANUEL. 2013; 310(1 9): 2061- 2068 (http ://ed ucati on.Qu estDi concepciónStocard tics. com/f aq/FA Q164) Not Available [facility] [address] [address] [place], [address], 07/23/2022 07:45:48 07/23/19 23 07/23/2022 LIPID PANEL , STAND HERMINIO chol/HDLC ratio 2.8 (calc ) <5.0 normal Not Available [facility] [address] [place], [address], 07/23/2022 07:45:48 07/23/19 23 07/23/2022 LIPID PANEL , STAND HERMINIO non HDL cholesterol 103 mg/dL _(shawn c) <130 normal For patie nts with diabe denisse plus 1 major ASCVD risk facto r, treat ing to a non-H DL-C goal of <100 mg/dL (LDL- C of <70 mg/dL ) is consi dered a thera peuti c optio n. Not Available [facility] [address] [place] [address] [place], [address], 07/23/2022 07:45:48 07/23/1907/23/2022 BASIC METAB OLIC PANEL glucose 102 mg/dL 65-99 high Fasti ng refer ence inter genie For someo ne witho ut known diabe denisse, a gluco se value betwe en 100 and 125 mg/dL is consi stent with predi abete s and shoul d be confi rmed with a follo w-up test. Not Available [facility] [address] [place] [address] [place], [address], 07/23/2022 07:45:48 07/23/1907/23/2022 BASIC METAB OLIC PANEL urea nitrogen (BUN) 15 mg/dL 7-25 normal Not Available [facility] [address] [address] [place], [address], 07/23/2022 07:45:48 07/23/1907/23/2022 BASIC METAB OLIC PANEL creatinine 1.73 mg/dL 0.70-1 .28 high Not Available [facility] [address] [place] [address] [place], [address], 07/23/2022 07:45:48 07/23/1907/23/2022 BASIC METAB OLIC PANEL eGFR 41 mL/mi n/1.7 3m2 > or = 60 low The eGFR is based on the CKD-E PI 2020 equat ion. To calcu late the new eGFR from a previ ous Creat inine or Cysta tin C resul t, go to https ://richardson peña.evelyn shah.o yary/kishor ofess ional s/ kdoqi /gfr% 5Fcal culat or Not Available [address] [address] [place], [address], 07/23/2022 07:45:48 07/23/1907/23/2022 BASIC METAB OLIC PANEL BUN/creatini ne ratio 9 (calc ) 6-22 normal Not Available [address] [address] [place], [address], 07/23/2022 07:45:48 07/23/19 23 07/23/2022 BASIC METAB OLIC PANEL sodium 136 mmol/ L 135-14 6 normal Not Available [address] [address] [place], [address], 07/23/2022 07:45:48 07/23/1907/23/2022 BASIC METAB OLIC PANEL potassium 4.7 mmol/ L 3.5-5. 3 normal Not Available [employer] [address] [address] [place], [address], 07/23/2022 07:45:48 07/23/1907/23/2022 BASIC METAB OLIC PANEL chloride 104 mmol/ L 98-110 normal Not Available [employer] [address] [address] [place], [address], 07/23/2022 07:45:48 07/23/19 23 07/23/2022 BASIC METAB OLIC PANEL carbon dioxide 25 mmol/ L 20-32 normal Not Available [employer] [address] [address] [place], [address], 07/23/2022 07:45:48 07/23/19 23 07/23/2022 BASIC METAB OLIC PANEL calcium 9.0 mg/dL 8.6-10 .3 normal Not Available [address], [address], 07/23/2022 07:45:48 07/23/19 23 07/23/2022 HEPAT IC FUNCT ION PANEL protein, total 6.5 g/dL 6.1-8. 1 normal Not Available [address], [address], 07/23/2022 07:45:49 07/23/1907/23/2022 HEPAT IC FUNCT ION PANEL albumin 4.0 g/dL 3.6-5. 1 normal Not Available [address], [address], 07/23/2022 07:45:49 07/23/19 23 07/23/2022 HEPAT IC FUNCT ION PANEL globulin 2.5 g/dL_ (calc ) 1.9-3. 7 normal Not Available [address], [address], 07/23/2022 07:45:49 07/23/1907/23/2022 HEPAT IC FUNCT ION PANEL albumin/glob ulin ratio 1.6 (calc ) 1.0-2. 5 normal Not Available [address], [address], 07/23/2022 07:45:49 07/23/19 23 07/23/2022 HEPAT IC FUNCT ION PANEL bilirubin, total 0.7 mg/dL 0.2-1. 2 normal Not Available [address], [address], 07/23/2022 07:45:49 07/23/19 23 07/23/2022 HEPAT IC FUNCT ION PANEL bilirubin, direct 0.2 mg/dL < or = 0.2 normal Not Available [address], [address], 07/23/2022 07:45:49 07/23/1907/23/2022 HEPAT IC FUNCT ION PANEL bilirubin, indirect 0.5 mg/dL _(shawn c) 0.2-1. 2 normal Not Available [address], [address], 07/23/2022 07:45:49 07/23/19 23 07/23/2022 HEPAT IC FUNCT ION PANEL alkaline phosphatase 87 U/L 35-144 normal Not Available [facility] [address], [address], 07/23/2022 07:45:49 07/23/1907/23/2022 HEPAT IC FUNCT ION PANEL AST 13 U/L 10-35 normal Not Available [address], [address], 07/23/2022 07:45:49 07/23/1907/23/2022 HEPAT IC FUNCT ION PANEL ALT 8 U/L 9-46 low Not Available [address], [address], 07/23/2022 07:45:49 07/23/1907/23/2022 TSH TSH 2.07 mIU/L 0.40-4 .50 normal Not Available [address], [address], 07/23/2022 07:45:50 07/23/1907/23/2022 T4, FREE T4, free 1.2 NG/dL 0.8-1. 8 normal Not Available [address], [address], 07/23/2022 07:45:50 07/23/19 23 07/23/2022 CBC (INCL UDES DIFF/ PLT) white blood cell count 4.9 thous and/u L 3.8-10 .8 normal Not Available [address], [address], 07/23/2022 07:45:51 07/23/19 23 07/23/2022 CBC (INCL UDES DIFF/ PLT) red blood cell count 4.28 marie on/uL 4.20-5 .80 normal Not Available [address], [address], 07/23/2022 07:45:51 07/23/19 23 07/23/2022 CBC (INCL UDES DIFF/ PLT) hemoglobin 13.1 g/dL 13.2-1 7.1 low Not Available [address], [address], 07/23/2022 07:45:51 07/23/19 23 07/23/2022 CBC (INCL UDES DIFF/ PLT) hematocrit 39.1 % 38.5-5 0.0 normal Not Available [address], [address], 07/23/2022 07:45:51 07/23/19 23 07/23/2022 CBC (INCL UDES DIFF/ PLT) MCV 91.4 fL 80.0-1 00.0 normal Not Available [employer] [address], [address], 07/23/2022 07:45:51 07/23/1907/23/2022 CBC (INCL UDES DIFF/ PLT) MCH 30.6 pg 27.0-3 3.0 normal Not Available [employer] [address], [address], 07/23/2022 07:45:51 07/23/19 23 07/23/2022 CBC (INCL UDES DIFF/ PLT) MCHC 33.5 g/dL 32.0-3 6.0 normal Not Available [employer] [address] [place], [address], 07/23/2022 07:45:51 07/23/1907/23/2022 CBC (INCL UDES DIFF/ PLT) RDW 13.0 % 11.0-1 5.0 normal Not Available [address], [address], 07/23/2022 07:45:51 07/23/19 23 07/23/2022 CBC (INCL UDES DIFF/ PLT) platelet count 174 thous and/u L 140-40 0 normal Not Available [address], [address], 07/23/2022 07:45:51 07/23/1907/23/2022 CBC (INCL UDES DIFF/ PLT) MPV 10.8 fL 7.5-12 .5 normal Not Available [address], [address], 07/23/2022 07:45:51 07/23/1907/23/2022 CBC (INCL UDES DIFF/ PLT) absolute neutrophils 3180 cells /uL 1500-7 800 normal Not Available [address], [address], 07/23/2022 07:45:51 07/23/19 23 07/23/2022 CBC (INCL UDES DIFF/ PLT) absolute lymphocytes 1098 cells /uL 850-39 00 normal Not Available [address], [address], 07/23/2022 07:45:51 07/23/1907/23/2022 CBC (INCL UDES DIFF/ PLT) absolute monocytes 431 cells /uL 200-95 0 normal Not Available [address], [address], 07/23/2022 07:45:51 07/23/19 23 07/23/2022 CBC (INCL UDES DIFF/ PLT) absolute eosinophils 113 cells /uL 15-500 normal Not Available [address], [address], 07/23/2022 07:45:51 07/23/19 23 07/23/2022 CBC (INCL UDES DIFF/ PLT) absolute basophils 78 cells /uL 0-200 normal Not Available [facility] [address], [address], 07/23/2022 07:45:51 07/23/19 23 07/23/2022 CBC (INCL UDES DIFF/ PLT) neutrophils 64.9 % normal Not Available [address], [address], 07/23/2022 07:45:51 07/23/19 23 07/23/2022 CBC (INCL UDES DIFF/ PLT) lymphocytes 22.4 % normal Not Available [facility] [address], [address], 07/23/2022 07:45:51 07/23/19 23 07/23/2022 CBC (INCL UDES DIFF/ PLT) monocytes 8.8 % normal Not Available [facility] [address], [address], 07/23/2022 07:45:51 07/23/19 23 07/23/2022 CBC (INCL UDES DIFF/ PLT) eosinophils 2.3 % normal Not Available [address], [address], 07/23/2022 07:45:51 07/23/19 23 07/23/2022 CBC (INCL UDES DIFF/ PLT) basophils 1.6 % normal Not Available [address], [address], 07/23/2022 07:45:51 01/22/20 23 01/22/2023 TSH+F REE T4 TSH 3.18 mIU/L 0.40-4 .50 normal Not Available [address], [address], 01/22/2023 05:45:20 01/22/20 23 01/22/2023 TSH+F REE T4 T4, free 1.4 NG/dL 0.8-1. 8 normal Not Available [address], [address], 01/22/2023 05:45:20 01/22/20 23 01/22/2023 LIPID PANEL , STAND HERMINIO cholesterol, total 154 mg/dL <200 normal Not Available [address], [address], 01/22/2023 05:45:22 01/22/20 23 01/22/2023 LIPID PANEL , STAND HERMINIO HDL cholesterol 52 mg/dL > or = 40 normal Not Available [address], [address], 01/22/2023 05:45:22 01/22/20 23 01/22/2023 LIPID PANEL , STAND HERMINIO triglyceride s 101 mg/dL <150 normal Not Available [address], [address], 01/22/2023 05:45:22 01/22/20 23 01/22/2023 LIPID PANEL , STAND HERMINIO LDL-choleste rol 83 mg/dL _(shawn c) normal Refer ence range : <100 Edgardo able range <100 mg/dL for prima ry preve ntion ; <70 mg/dL for patie nts with CHD or diabe tic patie nts with > or = 2 CHD risk facto rs. LDL-C is now calcu lated using the Amaris n-Hop kins calcu tram n, which is a valid ated novel metho d provi ding ender r accur acy than the Fried andrae equat ion in the estim ation of LDL-C . Amaris orozco SS et al. MANUEL. 2013; 310(1 9): 2061- 2068 (http ://ed ucati on.Qu Luis Carlos beebefromAtoBs. com/f aq/FA Q164) Not Available [facility] [address] [place] [address] [facility] [place], [address], 01/22/2023 05:45:22 01/22/20 23 01/22/2023 LIPID PANEL , STAND HERMINIO chol/HDLC ratio 3.0 (calc ) <5.0 normal Not Available [facility] [address] [address] [address], [place], [address], 01/22/2023 05:45:22 01/22/20 23 01/22/2023 LIPID PANEL , STAND HERMINIO non HDL cholesterol 102 mg/dL _(shawn c) <130 normal For patie nts with diabe denisse plus 1 major ASCVD risk facto r, treat ing to a non-H DL-C goal of <100 mg/dL (LDL- C of <70 mg/dL ) is consi dered a thera peuti c optio n. Not Available [address] [place] [address] [facility] [place], [address], 01/22/2023 05:45:22 01/22/2001/22/2023 BASIC METAB OLIC PANEL glucose 100 mg/dL 65-99 high Fasti ng refer ence inter genie For someo ne witho ut known diabe denisse, a gluco se value betwe en 100 and 125 mg/dL is consi stent with predi abete s and shoul d be confi rmed with a follo w-up test. Not Available [facility] [address] [address] [address], [place], [address], 01/22/2023 05:45:23 01/22/20 23 01/22/2023 BASIC METAB OLIC PANEL urea nitrogen (BUN) 20 mg/dL 7-25 normal Not Available [facility] [address] [place] [address] [place], [address], 01/22/2023 05:45:23 01/22/20 23 01/22/2023 BASIC METAB OLIC PANEL creatinine 1.81 mg/dL 0.70-1 .28 high Not Available [address], [address], 01/22/2023 05:45:23 01/22/20 23 01/22/2023 BASIC METAB OLIC PANEL eGFR 38 mL/mi n/1.7 3m2 > or = 60 low Not Available [address], [address], 01/22/2023 05:45:23 01/22/20 23 01/22/2023 BASIC METAB OLIC PANEL BUN/creatini ne ratio 11 (calc ) 6-22 normal Not Available [address], [address], 01/22/2023 05:45:23 01/22/20 23 01/22/2023 BASIC METAB OLIC PANEL sodium 136 mmol/ L 135-14 6 normal Not Available [address], [address], 01/22/2023 05:45:23 01/22/20 23 01/22/2023 BASIC METAB OLIC PANEL potassium 4.1 mmol/ L 3.5-5. 3 normal Not Available [address], [address], 01/22/2023 05:45:23 01/22/20 23 01/22/2023 BASIC METAB OLIC PANEL chloride 104 mmol/ L 98-110 normal Not Available [address], [address], 01/22/2023 05:45:23 01/22/20 23 01/22/2023 BASIC METAB OLIC PANEL carbon dioxide 24 mmol/ L 20-32 normal Not Available [address], [address], 01/22/2023 05:45:23 01/22/20 23 01/22/2023 BASIC METAB OLIC PANEL calcium 8.9 mg/dL 8.6-10 .3 normal Not Available [address], [address], 01/22/2023 05:45:23 01/22/20 23 01/22/2023 HEMOG LOBIN A1C hemoglobin A1C 5.7 %_of_ total _HGB <5.7 high For someo ne witho ut known diabe denisse, a hemog lobin A1c value betwe en 5.7% and 6.4% is consi stent with predi abete s and shoul d be confi rmed with a follo w-up test. For someo ne with known diabe denisse, a value <7% indic ates that their diabe denisse is well contr olled . A1c targe ts shoul d be indiv idual ized based on durat ion of diabe denisse, age, comor bid condi tions , and other consi derat ions. This assay resul t is consi stent with an incre ased risk of diabe denisse. Curre ntly, no conse nsus exist s regar ding use of hemog lobin A1c for diagn osis of diabe denisse for child josesito. Not Available [address], [address], 01/22/2023 05:45:24 01/22/20 23 01/22/2023 HEPAT IC FUNCT ION PANEL protein, total 6.6 g/dL 6.1-8. 1 normal Not Available [facility] [address] [address] [place], [address], 01/22/2023 05:45:25 01/22/20 23 01/22/2023 HEPAT IC FUNCT ION PANEL albumin 3.9 g/dL 3.6-5. 1 normal Not Available [facility] [address] [place], [address], 01/22/2023 05:45:25 01/22/20 23 01/22/2023 HEPAT IC FUNCT ION PANEL globulin 2.7 g/dL_ (calc ) 1.9-3. 7 normal Not Available [address] [address] [place], [address], 01/22/2023 05:45:25 01/22/20 23 01/22/2023 HEPAT IC FUNCT ION PANEL albumin/glob ulin ratio 1.4 (calc ) 1.0-2. 5 normal Not Available [address], [address], 01/22/2023 05:45:25 01/22/20 23 01/22/2023 HEPAT IC FUNCT ION PANEL bilirubin, total 0.5 mg/dL 0.2-1. 2 normal Not Available [address] [address] [place], [address], 01/22/2023 05:45:25 01/22/20 23 01/22/2023 HEPAT IC FUNCT ION PANEL bilirubin, direct 0.1 mg/dL < or = 0.2 normal Not Available [address] [address] [place], [address], 01/22/2023 05:45:25 01/22/20 23 01/22/2023 HEPAT IC FUNCT ION PANEL bilirubin, indirect 0.4 mg/dL _(shawn c) 0.2-1. 2 normal Not Available [address] [address] [place], [address], 01/22/2023 05:45:25 01/22/20 23 01/22/2023 HEPAT IC FUNCT ION PANEL alkaline phosphatase 91 U/L 35-144 normal Not Available [facility] [address] [address] [place], [address], 01/22/2023 05:45:25 01/22/20 23 01/22/2023 HEPAT IC FUNCT ION PANEL AST 12 U/L 10-35 normal Not Available [address], [address], 01/22/2023 05:45:25 01/22/20 23 01/22/2023 HEPAT IC FUNCT ION PANEL ALT 7 U/L 9-46 low Not Available [employer] [address], [address], 01/22/2023 05:45:25 01/22/20 23 01/22/2023 CBC (INCL UDES DIFF/ PLT) white blood cell count 5.4 thous and/u L 3.8-10 .8 normal Not Available [address], [address], 01/22/2023 05:45:26 01/22/20 23 01/22/2023 CBC (INCL UDES DIFF/ PLT) red blood cell count 4.10 marie on/uL 4.20-5 .80 low Not Available [address], [address], 01/22/2023 05:45:26 01/22/20 23 01/22/2023 CBC (INCL UDES DIFF/ PLT) hemoglobin 12.4 g/dL 13.2-1 7.1 low Not Available [employer] [address], [address], 01/22/2023 05:45:26 01/22/20 23 01/22/2023 CBC (INCL UDES DIFF/ PLT) hematocrit 37.6 % 38.5-5 0.0 low Not Available [address], [address], 01/22/2023 05:45:26 01/22/20 23 01/22/2023 CBC (INCL UDES DIFF/ PLT) MCV 91.7 fL 80.0-1 00.0 normal Not Available [address], [address], 01/22/2023 05:45:26 01/22/20 23 01/22/2023 CBC (INCL UDES DIFF/ PLT) MCH 30.2 pg 27.0-3 3.0 normal Not Available [address], [address], 01/22/2023 05:45:26 01/22/20 23 01/22/2023 CBC (INCL UDES DIFF/ PLT) MCHC 33.0 g/dL 32.0-3 6.0 normal Not Available [address], [address], 01/22/2023 05:45:26 01/22/20 23 01/22/2023 CBC (INCL UDES DIFF/ PLT) RDW 12.4 % 11.0-1 5.0 normal Not Available [address], [address], 01/22/2023 05:45:26 01/22/20 23 01/22/2023 CBC (INCL UDES DIFF/ PLT) platelet count 168 thous and/u L 140-40 0 normal Not Available [address], [address], 01/22/2023 05:45:26 01/22/20 23 01/22/2023 CBC (INCL UDES DIFF/ PLT) MPV 11.4 fL 7.5-12 .5 normal Not Available [address], [address], 01/22/2023 05:45:26 01/22/20 23 01/22/2023 CBC (INCL UDES DIFF/ PLT) absolute neutrophils 3391 cells /uL 1500-7 800 normal Not Available [employer] [address], [address], 01/22/2023 05:45:26 01/22/20 23 01/22/2023 CBC (INCL UDES DIFF/ PLT) absolute lymphocytes 1210 cells /uL 850-39 00 normal Not Available [address], [address], 01/22/2023 05:45:26 01/22/20 23 01/22/2023 CBC (INCL UDES DIFF/ PLT) absolute monocytes 578 cells /uL 200-95 0 normal Not Available [facility] [address], [address], 01/22/2023 05:45:26 01/22/20 23 01/22/2023 CBC (INCL UDES DIFF/ PLT) absolute eosinophils 130 cells /uL 15-500 normal Not Available [facility] [address], [address], 01/22/2023 05:45:26 01/22/20 23 01/22/2023 CBC (INCL UDES DIFF/ PLT) absolute basophils 92 cells /uL 0-200 normal Not Available [facility] [address], [address], 01/22/2023 05:45:26 01/22/20 23 01/22/2023 CBC (INCL UDES DIFF/ PLT) neutrophils 62.8 % normal Not Available [facility] [address], [address], 01/22/2023 05:45:26 01/22/20 23 01/22/2023 CBC (INCL UDES DIFF/ PLT) lymphocytes 22.4 % normal Not Available [address], [address], 01/22/2023 05:45:26 01/22/20 23 01/22/2023 CBC (INCL UDES DIFF/ PLT) monocytes 10.7 % normal Not Available [facility] [address], [address], 01/22/2023 05:45:26 01/22/20 23 01/22/2023 CBC (INCL UDES DIFF/ PLT) eosinophils 2.4 % normal Not Available [facility] [address], [address], 01/22/2023 05:45:26 01/22/20 23 01/22/2023 CBC (INCL UDES DIFF/ PLT) basophils 1.7 % normal Not Available [facility] [facility] [address] [place], [address], 01/22/2023 05:45:26 01/22/20 23 01/22/2023 PSA, TOTAL PSA, total 1.22 NG/mL < or = 4.00 normal The total PSA value from this assay syste m is stand ardiz ed again st the WHO stand herminio. The test resul t will be appro ximat javed 20% lower when edwin red to the equim olar- stand ardiz ed total PSA (Rahman man Coult er). Edwin rison of seria l PSA resul ts shoul d be inter prete d with this fact in mind. This test was perfo rmed using the Sieme ns chemi lumin escen t metho d. Value s obtai sia from diffe rent assay metho ds canno t be used inter espinoza eably . PSA level s, regar dless of value , shoul d not be inter prete d as absol cullen evide nce of the prese nce or absen ce of disea se. Not Available [employer] [facility] [address] [place], [address], 01/22/2023 05:45:27 Result Notes None recorded. Problems Name Problem SNOMED Code Status Onset Date Resolution Date Notes Provider Name and Address Organization Details Recorded Time Blood glucose outside reference range 810999023 Active Not Available [facility] 3 04:52:24 Anxiety disorder 935005145 Active Not Available [employer] 3 04:52:24 Gastroesop hageal reflux disease 039790039 Active Not Available [employer] 3 04:52:24 Lumbar spondylosi s 108107486 Active Not Available [facility] 3 04:52:25 Mixed hyperlipid emia 757755512 Active Not Available [facility] 3 04:52:25 Genital herpes simplex 16213765 Active Not Available [facility] 3 04:52:25 Osteoarthr itis 848647203 Active Not Available [facility] 3 04:52:25 Pharyngiti s 688641989 Active Not Available [facility] 3 04:52:25 Chronic kidney disease stage 1 631388685 Active Not Available [facility] 3 04:52:25 Chronic systolic heart failure 531344092 Active Not Available [facility] 3 04:52:25 Pain of shoulder region 93213575 Active Not Available [facility] 3 04:52:25 Primary erectile dysfunctio n 629212316 Active Not Available [facility] 3 04:52:25 Atrial fibrillati on 52108378 Active Not Available [facility] 3 04:52:26 Coronary arterioscl erosis 01960992 Active Not Available [facility] 3 04:52:26 Chronic kidney disease 226242723 Active Not Available [facility] 3 04:52:26 Slowing of urinary stream 65873582 Active Not Available [facility] 3 04:52:26 Upper respirator y infection 93637726 Active 2021 Not Available [facility] 3 04:52:26 Cholelithi asis without obstructio n 15937387 Active 2022 MIKAYLA Saldivar [address] [facility], [place] [address], [place], [address] , [employer] 3 12:24:14 Lesion of skin of face 665362556551 Active 2022 MIKAYLA Saldivar [address] [employer], [place], [address] , [employer] 3 11:48:58 Problem Notes None recorded. Procedures Surgical History Date Name Laterality Status Provider Name and Address Organization Details Recorded Time 023 Medicare Wellness CPT Code, subsequent completed Anusha Holliday RN [facility] [employer] 07/31/2022 10:16:27 019 Colonoscopy completed Not Available [facility] 04/22/2022 04:41:38 014 Cardiovascular Surgery completed Not Available [facility] 04/22/2022 04:41:38 013 Gastrointestinal Surgery completed Not Available [facility] 04/22/2022 04:41:38 013 Cardiovascular Surgery completed Not Available [facility] 04/22/2022 04:41:38 Imaging Results None recorded. Procedure Notes None recorded. Medical Equipment None Reported. Allergies Allergen ID Allergen Name Allergen Category Reaction Reaction Severity Criticality Documentation Date Start Date Code Code System Note Provider Name and Address Organization Details Recorded Time 8258 Product containin g penicilli n (product) medicatio n hives Not available Not available 04/22/2022 12804 8001 SNOMED Not Available [facility] 05:04:24 Medications Name Sig Start Date Stop Date Status Note LastModified by Organization Details LastModified Time furosemide 40 mg tablet PRN active Not Available Not Available Not Available carvedilol 6.25 mg tablet Take 1 tablet twice a day by oral route for 90 days. 08/08 completed Not Available Not Available Not Available atorvastat in 20 mg tablet TAKE 1 TABLET DAILY active Not Available Not Available No t Available carvedilol 12.5 mg tablet Take 0.5 tablets twice a day by oral route for 90 days. active Not Available Not Available No t Available azithromyc in 250 mg tablet active Not Available Not Available Not Available hydrocodon e 5 mg-acetami nophen 325 mg tablet 07/01 completed Not Available Not Available Not Available prednisone 20 mg tablet 01/26 completed Not Available Not Available Not Available clindamyci n HCl 150 mg capsule 06/30 completed Not Available Not Available Not Available Molly Low Dose Aspirin 81 mg tablet,del ayed release Take 1 tablet every day by oral route. 07/25 completed Not Available Not Available Not Available clopidogre l 75 mg tablet TK 1 T PO QD 07/28 completed Not Available Not Available Not Available acyclovir 400 mg tablet TAKE 2 TABLETS DAILY active Not Available Not Available No t Available peg-electr olyte solution 420 gram oral solution 07/26 completed Not Available Not Available Not Available tramadol 50 mg tablet Take 1 tablet every 4-6 hours by oral route as needed. active Not Available Not Available No t Available spironolac tone 25 mg tablet 1/2 tab po daily 07/25 completed Not Available Not Available Not Available carvedilol 3.125 mg tablet active Not Available Not Available Not Available prednisolo ne acetate 1 % eye drops,susp ension INSTILL 1 DROP INTO LEFT EYE THREE TIMES DAILY THEN TAPER DIRECTED 01/29 completed Not Available Not Available Not Available lorazepam 0.5 mg tablet TAKE 3 TABLETS BY MOUTH EVERY NIGHT AT BEDTIME active Not Available Not Available No t Available tamsulosin 0.4 mg capsule Take 1 capsule every day by oral route. active Not Available Not Available No t Available pantoprazo le 40 mg tablet,del ayed release TAKE 1 TABLET DAILY active Not Available Not Available No t Available clotrimazo le-betamet hasone 1 %-0.05 % topical cream 07/01 completed Not Available Not Available Not Available warfarin 2 mg tablet TK ONE T PO FOR 1 DOSE ON 08/24. 01/27 completed Not Available Not Available Not Available warfarin 5 mg tablet 01/27 completed Not Available Not Available Not Available magnesium citrate oral solution DRINK DIRECTED BY MD 07/28 completed Not Available Not Available Not Available lisinopril 5 mg tablet Take 1 tablet every day by oral route for 90 days. active Not Available Not Available No t Available digoxin 125 mcg (0.125 mg) tablet 02/01 completed Not Available Not Available Not Available furosemide 20 mg tablet PRN 02/01 completed Not Available Not Available Not Available cefuroxime axetil 500 mg tablet TAKE 1 TABLET BY MOUTH EVERY 12 HOURS 01/29 completed Not Available Not Available Not Available ipratropiu m bromide 42 mcg (0.06 %) nasal spray [place] by nasal route as directed for 16 days. active Not Available Not Available No t Available eplerenone 25 mg tablet 02/01 completed Not Available Not Available Not Available Eliquis 5 mg tablet Take 1 tablet twice a day by oral route. active Not Available Not Available No t Available Jardiance 10 mg tablet active Not Available Not Available Not Available Entresto 49 mg-51 mg tablet 07/31 completed taking 24-26mg Not Available Not Available Not Available Entresto 24 mg-26 mg tablet active Not Available Not Available No t Available Fluzone High-Dose (PF) 180 mcg/0.5 mL intramuscu lar syringe TO BE ADMINIST ERED BY PHARMACI ST FOR IMMUNIZA TION active Not Available Not Available No t Available Fluad 65yr up(PF)45 mcg(15 mcgx3)/0.5 mL intramuscu lar syringe RPH TO ADM 0.5ML IM UTD 01/27 completed Not Available Not Available Not Available Fluzone High-Dose 1320-9160 (PF) 180 mcg/0.5 mL intramuscu lar syringe ADM 0.5ML IM UTD 01/27 completed Not Available Not Available Not Available Fluzone High-Dose 2018- (PF) 180 mcg/0.5 mL intramuscu lar syringe ADM 0.5ML IM UTD 07/25 completed Not Available Not Available Not Available Fluzone High-Dose Quad (PF) 240 mcg/0.7 mL IM syringe PHARMACY ADMINIST ERED 02/07 completed Not Available Not Available Not Available Vitals Date Recorded Body height Body temperature Body mass index (BMI) Body weight Heart rate Oxygen saturation Oxygen saturation in Arterial blood by Pulse oximetry Systolic And Diastolic Provider Name and Address Organization Details Last Updated DateTime 3 167.64 cm 97.1 [degF] 25.3 kg/m2 87308 g 64 /min 97 % 97 % 136/74 mm[Hg] Anusha Holliday RN [place] [facility] [place] [email or web address] 3 12:01:18 Date Recorded Body mass index (BMI) Body height Oxygen saturation Oxygen saturation in Arterial blood by Pulse oximetry Heart rate Respiratory rate Body temperature Body weight Systolic And Diastolic Provider Name and Address Organization Details Last Updated DateTime 2 25.3 kg/m2 167.64 cm 98 % 98 % 67 /min 16 /min 98 [degF] 33564 g 108/60 mm[Hg] Not Available [facility] 3 04:50:18 Date Recorded Body height Body mass index (BMI) Body weight Body temperature Heart rate Oxygen saturation Oxygen saturation in Arterial blood by Pulse oximetry Systolic And Diastolic Provider Name and Address Organization Details Last Updated DateTime 3 167.64 cm 25 kg/m2 23025.8 2 g 98.1 [degF] 58 /min 99 % 99 % 124/64 mm[Hg] Anusha Holliday RN [place] [employer] [facility] Angella Joy 3 10:25:34 Date Recorded Body mass index (BMI) Body height Heart rate Respiratory rate Body temperature Body weight Systolic And Diastolic Provider Name and Address Organization Details Last Updated DateTime 2 24.9 kg/m2 167.64 cm 68 /min 16 /min 97.3 [degF] 57908.0 2 g 118/62 mm[Hg] Not Available [facility] 3 04:50:18 Date Recorded Systolic And Diastolic Provider Name and Address Organization Details Last Updated DateTime 02/01/2023 110/70 mm[Hg] MIKAYLA Saldivar [address] [place] [address], [id number], [place] [employer] [facility] Angella Joy 02/01/2023 11:46:01 Date Recorded Body height Body temperature Body mass index (BMI) Body weight Respiratory rate Oxygen saturation Oxygen saturation in Arterial blood by Pulse oximetry Heart rate Systolic And Diastolic Provider Name and Address Organization Details Last Updated DateTime 3 167.64 cm 97.3 [degF] 25.5 kg/m2 83069.5 9 g 16 /min 99 % 99 % 82 /min 122/80 mm[Hg] STAN Stoll [place] [employer] [facility] Angella Joy 3 11:24:41 Social History Question Answer Notes LastModified by Organizat ion Details LastModified Time Tobacco Smoking Status Never Smoker Not Available [facility] 04/22/2022 04:40:21 Do You Have An Advance Directive? Yes Information not available 07/31/2022 Are You Blind Or Do You Have Difficulty Seeing? Yes Glasses [email or web address] Information not available 07/31/2022 Is Blood Transfusion Acceptable In An Emergency? Yes [email or web address] Information not available 07/31/2022 What Is Your Level Of Caffeine Consumption? Occasional MIGRATION.01820 [id number] Information not available 04/22/2022 How Much Tobacco Do You Chew? None MIGRATION. 57193 Information not available 04/22/2022 In The 14 Days Before Symptom Onset, Have You Had Close Contact With A Laboratory-confir med COVID-19 While That Case Was Ill? No MIGRATION. [id number] Information not available 04/22/2022 In The 14 Days Before Symptom Onset, Have You Had Close Contact With A Person Who Is Under Investigation For COVID-19 While That Person Was Ill? No MIGRATION.38434 [id number] Information not available 04/22/2022 Are You Deaf Or Do You Have Serious Difficulty Hearing? Yes Hearing Aids [email or web address] Information not available 07/31/2022 What Type Of Diet Are You Following? REGULAR MIGRATION.72316 [id number] Information not available 04/22/2022 Which Illicit Or Recreational Drugs Have You Used? None MIGRATION.52799 88902 Information not available 04/22/2022 Have There Been Any Changes To Your Family Or Social Situation? No MIGRATION.09379 57667 Information not available 04/22/2022 Do You Use Insect Repellent Routinely? No MIGRATION.72671 65980 Information not available 04/22/2022 Presence Of Domestic Violence No [email or web address] Information no t available 07/31/2022 Are You Able To Care For Yourself? Yes [email or web address] Information not available 07/31/2022 Are You Blind Or Do Yo Have Difficulty Seeing? Yes Glasses [email or web address] Information not available 07/31/2022 Are You Deaf Or Do You Have Serious Difficulty Hearing? Yes Hearing Aids [email or web address] Information not available 07/31/2022 General Stress Level? Low [email or web address] Information not available 07/31/2022 Live Alone Of With Others? 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 MIGRATION.02368 27361 Information not available 04/22/2022 Do You Use Your Seat Belt Or Car Seat Routinely? Yes MIGRATION.97024 60296 Information not available 04/22/2022 Do You Have Smoke And Carbon Monoxide Detectors In Your Home? Yes MIGRATION.30151 07026 Information not available 04/22/2022 How Much Tobacco Do You Smoke? No MIGRATION.01314 51470 Information not available 04/22/2022 Do You Use Sunscreen Routinely? Yes MIGRATION.82770 69461 Information not available 04/22/2022 Have You Recently Traveled Abroad? No MIGRATION.14287 69911 Information not available 04/22/2022 Do You Have Difficulty Walking Or Climbing Stairs? No MIGRATION.26375 07992 Information not available 04/22/2022 Do You Have Any Dietary Restrictions? No MIGRATION.39678 31780 Information not available 04/22/2022 Sex: Unknown Functional Status Question Answer Note LastModified by Organizat ion Details LastModified Time Do you or have you ever used smokeless tobacco? Never used smokeless tobacco MIGRATION.261081 1378 Information not available 04/22/2022 Are you currently employed? No [email or web address] Information not available 05/07/2022 Do you have transportation difficulties? No MIGRATION.757523 6670 Information not available 04/22/2022 Are you able to care for yourself independently? Yes MIGRATION.362763 8990 Information not available 04/22/2022 Do you have difficulty dressing, bathing, grooming, or toileting? No MIGRATION.208878 3494 Information not available 04/22/2022 Do you or have you ever used e-cigarettes or vape? Never used electronic cigarettes MIGRATION.303554 7179 Information not available 04/22/2022 What is your exercise level? Moderate MIGRATION.926207 3482 Information not available 04/22/2022 Do you use any illicit or recreational drugs? No MIGRATION.848499 8553 Information not available 04/22/2022 Do you or have you ever used any other forms of tobacco or nicotine? No MIGRATION.708673 0907 Information not available 04/22/2022 What is your level of alcohol consumption? None MIGRATION.648642 1616 Information not available 04/22/2022 Are you able to walk independently without assistance or assistive devices? YESWOREST MIGRATION.161534 9150 Information not available 04/22/2022 Do you have difficulty doing errands alone? No MIGRATION.101608 5223 Information not available 04/22/2022 What is your occupation? Retired MIGRATION.401818 3556 Information not available 04/22/2022 Mental Status Question Answer Note LastModified by Organization D etails LastModified Time Do you have difficulty concentrating, remembering or making decisions? No [email or web address] Information no t available 07/31/2022 Family History Relationship Description Onset Age of this Age Resolved Age Notes LastModified by Organization Details LastModified Time Mother Malignant neoplastic disease 72 MIGRATION.108 [id number] Not available 04/22/2022 04:41:47 Father History of heart disorder 93 MIGRATION.761 [id number] Not available 04/22/2022 04:41:47 Father Myocardial infarction MIGRATION.349 [id number] Not available 04/22/2022 04:41:47 Son Hypertensive disorder MIGRATION.484 [id number] Not available 04/22/2022 04:41:47 Medical History Condition Response EYE PROBLEMS Y CARDIAC ARRHYTHMIA Y ULCERS Y ANXIETY DISORDER Y KIDNEY STONES Y BLOOD CLOTS Y KIDNEY DISEASE Y CORONARY ARTERY DISEASE (CAD) Y DEPRESSION (INCLUDING POST ) Y BACK / NECK PROBLEMS Y HEARTBURN / REFLUX Y HERPES Y HIGH CHOLESTEROL / HYPERLIPIDEMIA Y Immunizations Vaccine Type Date Status Note Provider Nam e and Address Organization Details Recorded Time Influenza, high-dose, trivalent, PF 9 completed Not Available [facility] 04/22/2022 05:04:11 Influenza, split virus, quadrivalent, preservative 7 completed Not Available [facility] 04/22/2022 05:04:11 Influenza, high-dose, trivalent, PF 1 completed Not Available [facility] 04/22/2022 05:04:11 COVID-19, mRNA, LNP-S, PF, 100 mcg/0.5mL dose or 50 mcg/0.25mL dose 1 completed Not Available [facility] 04/22/2022 05:04:12 COVID-19, mRNA, LNP-S, PF, 100 mcg/0.5mL dose or 50 mcg/0.25mL dose 1 completed Not Available [facility] 04/22/2022 05:04:12 Influenza, high-dose, quadrivalent, PF 0 completed Not Available [facility] 04/22/2022 05:04:12 Influenza, split virus, quadrivalent, preservative 8 completed Not Available [facility] 04/22/2022 05:04:12 influenza, unspecified formulation 6 completed Not Available [facility] 04/22/2022 05:04:12 influenza, unspecified formulation 5 completed Not Available [facility] 04/22/2022 05:04:12 Pneumococcal Conjugate, unspecified formulation 4 completed Not Available [facility] 04/22/2022 05:04:13 Past Encounters Encounter ID Performer Location Encounter Start Date Encounter Closed Date Diagnosis/Indication Diagnosis SNOMED-CT Code Diagnosis ICD10 Code Diagnosis IMO Codes Diagnosis Note [id number] MIKAYLA Saldivar [facility] [address] [place] [address] 08/08/2020 00:00:00 08/21/2020 13:44:40 [id number] MIKAYLA Saldivar [facility] [address] [place] [address] 02/06/2021 00:00:00 02/20/2021 18:35:21 [id number] Riley Sullivan MD [facility] [address] [place] [address] 07/25/2021 00:00:00 08/21/2021 20:27:09 [id number] MIKAYLA Saldivar [facility] [address] [place] [address] 01/30/2022 00:00:00 02/19/2022 22:56:17 [id number] MIKAYLA Saldivar [facility] [address] [place] [address] 05/08/2022 11:48:22 05/08/2022 12:53:58 Cholelithiasis without obstruction 61960931 K80.20 refer to general surgeon [id number] MIKAYLA Saldivar [facility] [address] [place] [address] 07/31/2022 10:13:49 07/31/2022 10:54:21 Adult health examination 841724489 Z00.00 Screening for disorder 117998990 Z13.9 Chronic sy stolic heart failure 230924966 I50.22 following routinely with cardiology . stable. Chronic ki dney disease 246163350 N18.9 stable. labs monitored again in dec. Blood gluc ose outside reference range 340107545 R73.09 stable. repeat a1c in dec. Mixed hyperlipidemia 267 279646 E78.2 stable on statin therapy. repeat labs in dec. Long-term drug therapy 101793403 Z79.899 LFT, CBC and TFTs in Dec. Screening for malignant neoplasm of prostate 269907671 Z12.5 PSA due in dec. [id number] MIKAYLA Saldivar [facility] [address] [place] [address] 02/01/2023 11:17:17 02/01/2023 11:51:13 Chronic systolic heart failure 993123550 I50.22 following routinely with cardiology . stable. Chronic ki dney disease 536003622 N18.9 stable. Cr at 1.81.. Blood gluc ose outside reference range 018038870 R73.09 5.7%. stable Mixed hyperlipidemia 267 122193 E78.2 stable on statin therapy. 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 Automatic implantable cardiac defibrillator in situ 894889427 Z95.810 stable Cardiac pa cemaker in situ 080285709 Z95.0 stable Lesion of skin of face 8268678131 06 L98.9 refer to Derm for evaluation on skin pigmented skin lesion Health Concerns Section Related Observation LastModified by Organization Detai ls LastModified Time None Recorded Concern Status LastModified by Organization Details LastModified Time None Recorded Advance Directives Directive Y: Payers Insurance Date Sequence Insurance Name Policy Number Policy Russell Covered Member ID Russell Member ID Guarantor Name 01/29/2023 1 [place] Good Hwang [id number] Good Hwang 02/26/2023 2 [employer] [place] (MEDICARE SUPPLEMENT) Good Hwang [id number] Good Hwang Notes Date Note Type Note Provider Name and Address Organization Details Recorded Time 3 text/html Generic HPI TemplateReported by Patientpt is here for ER f/u from 05/05/22. he went in for c/o sob and abdominal pain. US remarkable for cholelithiasis without acute cholecystitis. pt was instructed to f/u with general surgeoner report in room. pt denies any pain today, c/o some sob MIKAYLA Saldivar [address], [facility] [address], [place], [address], [employer] [facility] [employer] [facility] 05/22/2022 12:30:38 3 text/html HyperlipidemiaReported by PatientHPIFor duration, patient reportschronic. For control, patient reportsusually well controlled,improving, andat goal. For compliance, patient reportscompliant,compliant with diet, andexercises. For complications, patient reportsno coronary artery disease,no peripheral artery disease, andno cardiovascular disease. Anxiety, Generalized DisorderReported by PatientHPIFor modifying factors, patient reportsother medications. For associated symptoms, patient reportsno difficulty concentrating,no difficulty controlling worry,no difficulty swallowing,no anxiety,no excessive sweating,no hot flashes,no palpitations,no shortness of breath,no nausea,no diarrhea,no fatigue,no irritability,no muscle tension,no muscle aches,no trembling,no twitching,no headaches,no restlessness, andno sleep disturbances. Reflux/GERDReported by PatientHPIFor severity, patient reportsimproving. For context, patient reportsnon-smoker,no drug/alcohol abuse,no drug alcohol withdrawal, andnot related to food/drink. For alleviating factors, patient reportsmedication. For associated symptoms, patient reportsno frequent coughing,no feeling of fullness/mass in throat,no hoarseness,no food getting stuck,no belching/burping,no vomiting,not vomiting blood,no regurgitation,no shortness of breath,no chest pain,no heartburn,no difficulty swallowing,no pain when swallowing,no bad taste,no decreased appetite,no weight loss,no black/tarry stools,no fatigue, andno throat pain. wellness MIKAYLA Saldivar [address], [facility] [address], [place], [address], [facility] [employer] [facility] [employer] [facility] 08/19/2022 22:53:11 3 text/html HyperlipidemiaReported by PatientHPIFor duration, patient reportschronic. For compliance, patient reportsnoncompliant with dietanddoes not exercisebut reportscompliant,compliant with diet, andexercises. For control, patient reportsusually well controlled,improving, andat goal. For complications, patient reportsno coronary artery disease,no peripheral artery disease, andno cardiovascular disease. Anxiety/DepressionReported by PatientHPIFor quality, patient reportssymptoms worse in the evening. For severity, patient reportsdenies suicidal ideations,able to maintain relationships, anddoes not interfere with activities of daily living. For duration, patient reportssymptoms lasting over 2 weeks. For onset/timing, patient reportsstill present. For context, patient reportsno major life stressors. For associated symptoms, patient reportsdenies homicidal ideations,no significant weight gain,no significant weight loss,no visual/auditory hallucinations,no delusions, andno shortness of breath. Anxiety, Generalized DisorderReported by PatientHPIFor modifying factors, patient reportsother medications. For associated symptoms, patient reportsno difficulty concentrating,no difficulty controlling worry,no difficulty swallowing,no anxiety,no excessive sweating,no hot flashes,no palpitations,no shortness of breath,no nausea,no diarrhea,no fatigue,no irritability,no muscle tension,no muscle aches,no trembling,no twitching,no headaches,no restlessness, andno sleep disturbances. Reflux/GERDReported by PatientHPIFor severity, patient reportsimproving. For duration, patient reportspresent 5 or more years. For onset/timing, patient reportsgone now. For context, patient reportsnon-smoker,no drug/alcohol abuse,no drug alcohol withdrawal, andnot related to food/drink. For alleviating factors, patient reportsmedication. For associated symptoms, patient reportsno frequent coughing,no feeling of fullness/mass in throat,no hoarseness,no food getting stuck,no belching/burping,no vomiting,not vomiting blood,no regurgitation,no shortness of breath,no chest pain,no heartburn,no difficulty swallowing,no pain when swallowing,no bad taste,no decreased appetite,no weight loss,no black/tarry stools,no fatigue, andno throat pain. Ruma Smith, MIKAYLA [address] [facility], [facility] [address], [place], [address], [facility] 02/18/2023 08:25:24
--- OUTSIDE RECORDS SUMMARY | 2024-12-29 14:44 | XMS_ITS | Clinical Summary ---
Author Organization [facility] Address [address] [place] [address] Care Team Providers Care Rn Or Lpn Name Role Phone Missy Hutson RN Unavailable [phone] González Rocha MD Unavailable [phone] Huber Nguyen MD Unavailable [phone] Damon Barakat MD Unavailable [phone] Ruma Parnell Primary Care Pr ovider Source Comments [facility],non-owned Affiliates and Associated Physician Practices is amultiple site organization consisting of ambulatory clinics and hospital sitesin [place], [place], [place] and [place]. This disclosure is being madepursuant to the Care Everywhere program and may not contain all information available regarding this patient. Last updated 17.[facility] Allergies Active Allergy Reactions Criticality Noted Date Comments Meperidine Urticaria 09/27/2012 Patient has received fentanyl Penicillins Itching 07/29/2012 Spironolactone Other 07/17/2021 Breast tenderness Medications * Be aware that medications may not be up to date on this document. Alwaysverify current medications with the patient. pantoprazole EC (PROTONIX) 40 MG tablet as needed Active LORazepam (ATIVAN) 0.5 MG tablet Take 1 (one) tablet by mouth nightly as needed Active traMADol (ULTRAM) 50 MG tablet Take 1 (one) tablet by mouth 3 times daily as needed 4 Active atorvastatin (LIPITOR) 20 MG tablet 6 Active acyclovir (Zovirax) 400 MG tablet 3 Active furosemide (Lasix) 20 MG tablet TAKE 2 TABLETS NEEDED 180 tablet 4 Active fluorouracil (Efudex) 5 % cream Apply to affected area once daily 4 Active carvedilol (Coreg) 12.5 MG tablet TAKE 1 TABLET TWICE A DAY WITH MORNING AND EVENING MEAL 180 tablet 3 5 Active eplerenone (Inspra) 25 MG tablet TAKE ONE-HALF (1/2) TABLET DAILY 45 tablet 3 5 Active sacubitril-valsa rtan (Entresto) 24-26 MG tabletIndication s:HFrEF (heart failure with reduced ejection fraction) (HCC) TAKE 1 TABLET BY MOUTH TWICE A DAY 180 tablet 3 10/07/2024 9:07 AM CDT 5 07/04/19 26 Active empagliflozin (Jardiance) 10 MG tabletIndication s:Chronic systolic congestive heart failure (HCC),HFrEF (heart failure with reduced ejection fraction) (HCC) TAKE 1 TABLET BY MOUTH ONCE DAILY 90 tablet 3 12/05/2024 11:44 AM CDT 5 09/13/19 26 Active clopidogrel (plaVIX) 75 MG tablet TAKE 1 TABLET BY MOUTH ONCE DAILY 90 tablet 4 12/05/2024 11:44 AM CDT 5 12/06/19 26 Active apixaban (Eliquis) 5 MG tabletIndication s:Permanent atrial fibrillation (HCC) Take 1 (one) tablet by mouth 2 times daily 180 tablet 3 4 11/01/19 24 Discontinu ed(Yes Pharm/AVS) clopidogrel (plaVIX) 75 MG tablet TAKE 1 TABLET BY MOUTH ONCE DAILY 90 tablet 4 08/29/2024 8:38 AM CDT 4 12/06/19 Discontinu ed(Reorder ) Active Problems Patient Care Coordination No te Formatting of this note migh t be different from the original. BSC [id number] Problem Noted Date Diagnosed Date Essential (primary) hypertension 09/14/2021 DVT (deep venous thrombosis) 03/23/2021 Atherosclerosis of aorta 03/20/2019 s/p occlusion of left atrial appendage with Watc hman device 08/11/2017 Permanent atrial fibrillation 01/29/2016 Encounter for fitting or adj ustment of automatic implantable cardioverter-defibrillator 03/08/2015 Automatic implantable cardioverter-defibrillator in situ 12/29/2013 Overview (07/16/2014): Dual chamber ICD (Invincea); placed on 12/28/[address] Huber Nguyen. Dyslipidemia, goal LDL below 70 06/13/2013 Bleeding ulcer with perforation 03/25/2013 Ischemic cardiomyopathy 10/21/2012 Overview (06/13/2013): EF 35%, grade 2 diastolic dysfunction, severe hypokinesis of mid anteroseptal, anterolateral, apical septal and apical wall. Mild AI, mod MR, mild elevated pulm pressures 35mmHg, mild TR. (Echo Feb 2013) Pleural effusion 10/11/2012 S/P CABG x 3 on 09/27/2012 09/27/2012 Overview (06/13/2013): -Sep 27, 2012, MUELLER to LAD, SVG to OM1, SVG to distal RCA. Dr Bernal. HFrEF (heart failure with reduced ejection fract ion) 09/27/2012 Heart palpitations 09/14/2012 Arteriosclerotic cardiovascular disease (ASCVD) 09/14/2012 Encounters Date Type Department Care Team Description 12/05/2024 Refill [facility] [address] [place] [address] [address] [place] [address] González Rocha MD MEDICATION REFILL 11/08/2024 2:15 PM CDT Office Visit [facility] [address] [place] [address] González Rocha MD HFrEF (heart failure with reduced ejection fraction) ([facility]) (Primary Dx) 10/31/2024 7:00 AM CDT Clinical Support [facility] [address] [place] [address] González Rocha MD Cardiac defibrillator in place ; HFrEF (heart failure with reduced ejection fraction) ([facility]); VT (ventricular tachycardia) ([facility]); Ischemic cardiomyopathy from Last 3 Months Immunizations Immunization Administration Dates Next Due PNEUMOCOCCAL PPSV23 12/29/2013 Family History Medical History Relation Name Comments [place] Father Relation Name Status Comments Father Social History Tobacco Use Types Packs/Day Years Used Date Smoking Tobacco: Never Smokeless Tobacco: Never Tobacco Cessation:Counseling Given: Not Answered Alcohol Use Standard Drinks/Week Comments Yes 0 (1 standard drink = 0.6 oz pur e alcohol) rare PHQ-2 Answer Date Recorded Patient Health Questionnaire-2 Score 0 10/23/2022 Sex and Gender Information Value Date Recorded Sex Assigned at Not on file Legal Sex Male 8:54 AM CDT Gender Identity Not on file Sexual Orientation Not on file Last Filed Vital Signs Vital Sign Reading Time Taken Comments Blood Pressure 118/80 11/08/2024 2:13 PM CDT Pulse 59 11/08/2024 2:13 PM CDT Temperature 36.3 C (97.3 F) 09/14/2023 8:09 AM CDT Respiratory Rate 22 09/14/2023 11:10 AM CDT Oxygen Saturation 97% 11/08/2024 2:13 PM CDT Inhaled Oxygen Concentration 50% 10/15/2012 1 2:30 AM CDT Weight 64.9 kg (143 lb) 11/08/2024 2:13 PM CDT Height 167.6 cm (5' 6) 11/08/2024 2:13 PM CDT Body Mass Index 23.08 11/08/2024 2:13 PM CDT Plan of Treatment Upcoming Encounters Date Type Department Care Team (Late st Contact Info) Description 01/30/2025 7:00 AM SPECIAL EDUCATION PARAPROFESSIONAL Clinical Support [facility] [address] [place] [address] [address] [place] [address] 05/01/2025 7:00 AM CDT Clinical Support [facility] [address] [place] [address] [address] [place] [address] 05/16/2025 1:00 PM CDT Office Visit [facility] [address] [place] [address] [address] [place] [address] González Rocha MD [address] [place] [address] [address] [place], [place] [id number] 07/31/2025 7:00 AM CDT Clinical Support [facility] [address] [place] [address] [address] [place] [address] Health Maintenance Due Date Last Done Comments MEDICARE AWV 12 MONTHS 1945 HEPATITIS C SCREENING 12/20/1964 DTAP/TDAP/TD VACCINES (1 - Tdap) 1965 ZOSTER VACCINE (1 of 2) 1996 PNEUMOCOCCAL VACCINE 50+ (2 of 2 - PCV) 12/29/2014 12/29/2013 Respiratory Syncytial Virus (RSV) Vaccine Pt: or over 60 yrs (1 - 1-dose 75+ series) 2021 DEPRESSION SCREENING 02/23/2024 10/12/2022, 09/09/19 22 COVID-19 VACCINE ( season) 2024 12/17/2020, 05/13/2020, 04/09/2020 INFLUENZA VACCINE (#1) 2024 , 12/05/2020, 12/04/2020, Additional history exists HEPATITIS B VACCINE Aged Out No longe r eligible based on patient's age to complete this topic HIB VACCINE Aged Out No longer eligi ble based on patient's age to complete this topic HPV VACCINE Aged Out No longer eligi ble based on patient's age to complete this topic MENINGOCOCCAL (Group B) VACCINE SHARED DECISION-MAKING Aged Out No longer eligible based on patient's age to complete this topic MENINGOCOCCAL GROUPS A/C/Y/W VACCINE Aged Out No longer eligible based on patient's age to complete this topic Medical Devices Implanted Type Area Full Time Device Identifier Shelf Expiration Date Model / Serial / Lot Env Defib 3.3x2.9in Aigisrx Icd Tyrx Lg Implanted:Qty: 1 on 09/14/2023 by Huber Nguyen MD at [facility] [employer] [id number] 03/19/2024 [id number] / NA / [id number] Defib Resonate .99cm Phys Sens Mr Cndtnl Implanted:Qty: 1 on 09/14/2023 by Huber Nguyen MD at [facility] [facility] [id number] 01/25/2025 [id number] / [id number] / NA Procedures Procedure Name Priority Date/Time Associated Diagnosis Comments EKG 12-LEAD Routine 11/08/2024 2:37 PM CDT HFrEF (heart failure with reduced ejection fraction) ([facility]) ICD CLINIC CHECK Routine 10/31/2024 11:3 4 AM CDT Cardiac defibrillator in place HFrEF (heart failure with reduced ejection fraction) ([facility]) VT (ventricular tachycardia) ([facility]) Ischemic cardiomyopathy from Last 3 Months Results * EKG 12-LEAD (11/08/2024 2:37 PM CDT) Ventricular Rate 61 BPM [facility] Atrial Rate 220 BPM [facility] QRS Duration ms 104 ms [facility] Q-T Interval ms 426 ms [facility] QTC Calculation (Bezet) 428 ms [facility] Calculated R [place] 22 degrees [facility] Interpretation EKG ATRIAL FIBRILLATION WITH OCCASIONAL ventricular-pac ed complexes LOW VOLTAGE QRS POSSIBLE INFERIOR INFARCT ABNORMAL ECG Confirmed by MD Josefina, González ([id number]) on 11/13/2024 7:30:24 AM [facility] 11/08/2024 2:37 PM CDT 11/13/2024 7:30 AM CDT us González Rocha MD ECG ORDERABLES Edited Result - Final [facility] from Last 3 Months Insurance MEDICARE [facility] [place] [address] [facility] Advance Directives Documents on File Type Date Recorded Patient Board Handler Expl anation Adv Directive/Living Will/POA 10/05/2012 5:28 PM * Full Code (Latest Code Status on File) Date Activated Date Inactivated Comments 09/14/2023 9:44 AM 09/14/2023 12:28 PM * Full Code Date Activated Date Inactivated Comments 08/11/2017 9:31 AM 08/12/2017 7:20 PM * Full Code Date Activated Date Inactivated Comments 12/28/2013 9:45 AM 12/29/2013 4:32 PM * Full Code Date Activated Date Inactivated Comments 12/28/2013 9:45 AM 12/28/2013 9:45 AM * Full Code Date Activated Date Inactivated Comments 12/28/2013 8:12 AM 12/28/2013 9:45 AM Care Teams Rn Or Lpn Relationship Specialty Start Date End Date Ruma Parnell PA [address] [place] [id number] PCP - General Physician Paramedical Aide 03/08/15 Missy Hutson, RN Butter Grader 12/29/13 González Rocha MD [address] [place] [address] Operations Support Coordinator Cardiology 02/02/14 Huber Nguyen MD [address] [place] [address] Consulting Physician Electrophysiology 02/02/14 Damon Barakat MD [address] [place] [address] Cardiovascular Disease 05/25/14
--- OUTSIDE RECORDS SUMMARY | 2024-12-29 14:44 | XMS_ITS | Clinical Summary ---
Author Organization [address] Address [address] [place] [address] Care Team Providers Care Boiler Tester Name Role Phone Ruma Smith Primary Care Pr ovider Medications No known medications Active Problems No known active problems Encounters Date Type Department Care Team Description 10/19/2024 11:45 AM CDT Procedure visit [facility] [address] [place] [id number] Sarah Veras Fitting and adjustment of hearing aid (Primary Dx) from Last 3 Months Immunizations Immunization Administration Dates Next Due Moderna SARS-CoV-2 Monovalent Vaccination (12+ Y RS) 05/13/2020,04/09/2020 Social History Tobacco Use Types Packs/Day Years Used Date Smoking Tobacco: Unknown Sex and Gender Information Value Date Recorded Sex Assigned at Not on file Legal Sex Male 2:51 AM AFLOAT CRYPTOLOGIC MANAGER Gender Identity Not on file Sexual Orientation Not on file Plan of Treatment Health Maintenance Due Date Last Done Comments Depression Screening 1945 Fall Risk Assessment 1945 Hepatitis C Screening 1945 DTaP/Tdap/Td Vaccine (1 - Tdap) 1957 Hepatitis B Screening 1964 Zoster Vaccine (1 of 2) 1996 Well Visit 65+ 12/26/2011 Covid-19 Vaccine (5 2024-2 6 season) 2024 09/15/2021, 12/17/2020, 05/13/2020, Additional history exists Influenza Vaccine (#1) 2024 , 12/05/2020, 11/24/2019, Additional history exists Pneumococcal vaccine 65+ Completed 01/10/2014, 08/2013 Care Teams Boiler Tester Relationship Specialty Start Date End Date Ruma Smith PA [address] [place] [address] PCP - General Physician Smoking Tobacco Packer Hand 12/06/23
--- OUTSIDE RECORDS SUMMARY | 2024-12-29 14:44 | XMS_ITS | Encounter Summary ---
Author Organization [facility] Address [address] [place] [address] Care Team Providers Care Sole Sewer Hand Name Role Phone Missy Hutson RN Unavailable [phone] González Rocha MD Unavailable Huber Nguyen MD Unavailable [phone] Damon Barakat MD Unavailable [phone] Ruma Parnell Primary Care Pr ovider Damon Barakat MD Unavailable [phone] Damon Barakat MD Unavailable [phone] Ruma Parnell Unavailable Encounter Details Date Type Department Care Team (Late st Contact Info) Description 06/29/2012 [facility] Damon Barakat MD [address] [facility] [address] [place] [address] Social History Tobacco Use Types Packs/Day Years Used Date Smoking Tobacco: Never Assessed Sex and Gender Information Value Date Recorded Sex Assigned at Not on file Legal Sex Male 8:54 AM CDT Gender Identity Not on file Sexual Orientation Not on file documented as of this encounter Plan of Treatment Upcoming Encounters Date Type Department Care Team (Late st Contact Info) Description 01/30/2025 7:00 AM MEDICAL SECRETARY Clinical Support [facility] [address] [place] [address] [address] [place] [address] 05/01/2025 7:00 AM CDT Clinical Support [facility] [address] [place] [address] [address] [place] [address] 05/16/2025 1:00 PM CDT Office Visit [facility] [address] [place] [address] [address] [place] [address] Gonzá[place] [address] [place] [address] [address] [place] [address] 07/31/2025 7:00 AM CDT Clinical Support [facility] [address] [place] [address] [address] [place] [address] documented as of this encounter Visit Diagnoses Not on filedocumented in this encounter Care Teams Sole Sewer Hand Relationship Specialty Start Date End Date Ruma Parnell PA [address] [place] [phone] PCP - General Physician Creasing Machine Operator 03/08/15 Damon Barakat MD [address] [place], [place] [id number] [address] PCP - Attributed-MSSP 11/22/18 05/28/19 [place] [address] [place] [address] [address] [place] [address] PCP - Attributed-MSSP 07/23/18 09/21/18 Ruma Parnell PA [address] [place] [id number] PCP - Attributed-MSSP 09/22/18 11/21/18 Missy Hutson, RN Disbursing Agent 12/29/13 González Rocha MD [address] [place] [address] Director Data Architecture Cardiology 02/02/14 Huber Nguyen MD [address] [place] [address] Consulting Physician Electrophysiology 02/02/14 Damon Barakat MD [address] [place] [address] Cardiovascular Disease 05/25/14 documented as of this encounter
--- NOTE | 2024-12-29 14:49 | ECG_ITS ---
Test Date: 2024-12-29 14:52:08 Measurements Intervals Joshua Rate: 133 P: 0 WI: 0 QRS: 28 QRSD: 110 T: 0 QT: 299 QTc: 445 Interpretive Statements ATRIAL FIBRILLATION WITH RAPID VENTRICULAR RESPONSE LOW QRS VOLTAGE IN EXTREMITY LEADS POSSIBLE ANTERIOR MYOCARDIAL INFARCTION , PROBABLY OLD Electronically Signed On 12-29-2024 15:22:40 SEWAGE TREATMENT PLANT OPERATOR by Slava Wang D.O
[2024-12-29 15:26] VITALS: BP 123/71; PULSE 124; RESP 23; O2SAT 96
--- OUTSIDE RECORDS SUMMARY | 2024-12-29 15:27 | XMS_ITS | Encounter Summary ---
Author Organization [facility] Health Address [address] [place] [address] Care Team Providers Care Shearer Helper Name Role Phone Missy Hutson RN Unavailable [phone] González Rocha MD Unavailable [phone] Huber Nguyen MD Unavailable Damon Barakat MD Unavailable [phone] Ruma Parnell Primary Care Pr ovider Damon Barakat MD Unavailable [phone] Damon Barakat MD Unavailable [phone] Ruma Parnell Unavailable Encounter Details Date Type Department Care Team (Late st Contact Info) Description 12/02/2012 [facility] Visit [facility]TERNAL [facility] DEPT Damon Barakat MD [address] [facility] [address] [place] [address] Social History Tobacco Use Types Packs/Day Years [...] st Contact Info) Description 01/30/2025 7:00 AM RECORD PRESSMAN Clinical Support [facility] [address] [place] [address] [address] [place] [address] 05/01/2025 7:00 AM CDT Clinical Support [facility] [address] [place] [address] [address] [place] [address] 05/16/2025 1:00 PM CDT Office Visit [facility] [address] [place] [address] [address] [place] [address] González Rocha MD [address] [place] [address] 07/31/2025 7:00 AM CDT Clinical Support [facility] [address] [place] [address] [address] [place] [address] documented as of this encounter Visit Diagnoses Not on filedocumented in this encounter Care Teams Shearer Helper Relationship Specialty Start Date End Date Ruma Parnell PA [address] [place] [address] PCP - General Physician Power Tool Repairer 03/08/15 Damon Barakat MD [address] [place] [address] PCP - Attributed-MSSP 11/22/18 05/28/19 Damon Barakat MD [address] [place] [address] PCP - Attributed-MSSP 07/23/18 09/21/18 Ruma Parnell PA [address] [place] [address] PCP - Attributed-MSSP 09/22/18 11/21/18 Missy Hutson, RN Reheater Helper 12/29/13 González Rocha MD [address] [place] [address] Copy Operator Cardiology 02/02/14 Huber Nguyen MD [address] [place] [address] Consulting Physician Electrophysiology 02/02/14 Damon Barakat MD [address] [place] [address] Cardiovascular Disease 05/25/14 documented as of this encounter
--- OUTSIDE RECORDS SUMMARY | 2024-12-29 15:27 | XMS_ITS | Clinical Summary ---
Author Organization [facility] Address [address] [place] [address] Care Team Providers Care Starchmaker Name Role Phone Ruma Smith Primary Care Provider [phone] Social History Tobacco Use Types Packs/Day Years Used Date Smoking Tobacco: Never Smokeless Tobacco: Never Alcohol Use Standard Drinks/Week Comments No 0 (1 standard drink = 0.6 oz pur e alcohol) Sex and Gender Information Value Date Recorded Sex Assigned at Not on file Legal Sex Male 12:25 PM CRUCIBLE PACKER Gender Identity Not on file Sexual Orientation Not on file Last Filed Vital Signs Vital Sign Reading Time Taken Comments Blood Pressure 111/76 11/02/2016 8:45 PM CDT Pulse 71 11/02/2016 8:45 PM CDT Temperature 36.7 C (98 F) 11/02/2016 6:53 PM CDT Respiratory Rate 18 11/02/2016 6:53 PM CDT Oxygen Saturation - - Inhaled Oxygen Concentration - - Weight 81.6 [...] 2024 Insurance MEDICARE PART A AND B [facility] Care Teams Starchmaker Relationship Specialty Start Date End Date Ruma Smith PA PCP - General Physician Mechanical Artist 11/02/16
--- OUTSIDE RECORDS SUMMARY | 2024-12-29 15:27 | XMS_ITS | Encounter Summary ---
Author Organization [facility] Address [address] [facility] [place] [address] Care Team Providers Care Juvenile Justice Officer Name Role Phone Missy Hutson RN Unavailable González Rocha MD Unavailable [phone] Huber Nguyen MD Unavailable Damon Barakat MD Unavailable [phone] Ruma Parnell Primary Care Pr ovider Damon Barakat MD Unavailable [phone] Damon Barakat MD Unavailable [phone] Ruma Parnell Unavailable Encounter Details Date Type Department Care Team (Late st Contact Info) Description 11/09/2012 [facility] Damon Barakat MD [address] [facility] [address] [place] [address] Social History Tobacco Use Types Packs/Day Years [...] st Contact Info) Description 01/30/2025 7:00 AM BANK RUNNER Clinical Support [facility] [address] [place] [address] [address] [place] [address] 05/01/2025 7:00 AM CDT Clinical Support [facility] [address] [place] [address] [address] [place] [address] 05/16/2025 1:00 PM CDT Office Visit [facility] [address] [place] [address] [address] [place] [address] González Rocha MD [address] [place] [address] 07/31/2025 7:00 AM CDT Clinical Support [facility] [address] [place] [address] [address] [place] [address] documented as of this encounter Visit Diagnoses Not on filedocumented in this encounter Care Teams Juvenile Justice Officer Relationship Specialty Start Date End Date Ruma Parnell PA [address] [place] [address] PCP - General Physician Dog Warden 03/08/15 Damon Barakat MD [address] [place] [address] PCP - Attributed-MSSP 11/22/18 05/28/19 Damon Barakat MD [address] [place] [address] PCP - Attributed-MSSP 07/23/18 09/21/18 Ruma Parnell PA [address] [place] [address] PCP - Attributed-MSSP 09/22/18 11/21/18 Missy Hutson, RN Carpenter Packing 12/29/13 González Rocha MD [address] [place] [address] Semiconductor Wafer Inspector Cardiology 02/02/14 Huber Nguyen MD [address] [place] [address] Consulting Physician Electrophysiology 02/02/14 Damon Barakat MD [address] [place] [address] Cardiovascular Disease 05/25/14 documented as of this encounter
--- OUTSIDE RECORDS SUMMARY | 2024-12-29 15:28 | XMS_ITS | Clinical Summary ---
Author Organization [facility] Address [address] [place] [address] Care Team Providers Care Slot Router Name Role Phone Missy Hutson RN Unavailable [phone] González Rocha MD Unavailable [phone] Huber Nguyen MD Unavailable [phone] Damon Barakat MD Unavailable [phone] Ruma Parnell Primary Care Pr ovider Source Comments [facility],non-owned Affiliates and Associated Physician Practices is amultiple site organization consisting of ambulatory clinics and hospital sitesin [place], [place], [place] and [place]. This disclosure is being madepursuant to the Care Everywhere program and may not contain all information available regarding this patient. Last updated 17.[facility] Allergies Active Allergy Reactions Criticality Noted Date [...] t be different from the original. BSC ODD-AX-Hathipmo Problem Noted Date Diagnosed Date Essential (primary) hypertension 09/14/2021 DVT (deep venous thrombosis) 03/23/2021 Atherosclerosis of aorta 03/20/2019 s/p occlusion of left atrial appendage with Watc hman device 08/11/2017 Permanent atrial fibrillation 01/29/2016 Encounter for fitting or adj ustment of automatic implantable cardioverter-defibrillator 03/08/2015 Automatic implantable cardioverter-defibrillator in situ 12/29/2013 Overview (07/16/2014): Dual chamber ICD (Syrmo); placed on 12/28/[address] Huber Nguyen. [...] Type Department Care Team Description 12/05/2024 Refill [facility] [address] [place] [address] [address] [place] [address] González Rocha MD MEDICATION REFILL 11/08/2024 2:15 PM CDT Office Visit [facility] [address] [place] [address] González Rocha MD HFrEF (heart failure with reduced ejection fraction) ([facility]) (Primary Dx) 10/31/2024 7:00 AM CDT Clinical Support [facility] [address] [place] [address] González Rocha MD Cardiac defibrillator in place ; HFrEF (heart failure with reduced ejection fraction) ([facility]); VT (ventricular tachycardia) ([facility]); Ischemic cardiomyopathy from Last 3 Months Immunizations Immunization Administration Dates Next Due PNEUMOCOCCAL PPSV23 12/29/2013 Family History Medical History Relation Name Comments [place] Father Relation Name Status Comments Father Social [...] st Contact Info) Description 01/30/2025 7:00 AM TRANSITION ADVISOR Clinical Support [facility] [address] [place] [address] [address] [place] [address] 05/01/2025 7:00 AM CDT Clinical Support [facility] [address] [place] [address] [address] [place] [address] 05/16/2025 1:00 PM CDT Office Visit [facility] [address] [place] [address] [address] [place] [id number] González Rocha MD [address] [place] [address] [address] [place], [place] [id number] 07/31/2025 7:00 AM CDT Clinical Support [facility] [address] [place] [address] [address] [place] [address] Health Maintenance Due Date Last Done Comments [...] this topic Medical Devices Implanted Type Area Documentation Specialist Device Identifier Shelf Expiration Date Model / Serial / Lot Env Defib 3.3x2.9in Aigisrx Icd Tyrx Lg Implanted:Qty: 1 on 09/14/2023 by Huber Nguyen MD at [facility] [employer] [id number] 03/19/2024 [id number] / NA / [id number] Defib Resonate .99cm Phys Sens Mr Cndtnl Implanted:Qty: 1 on 09/14/2023 by Huber Nguyen MD at [facility] [place][note 2] [employer] [id number] 01/25/2025 [id number] / [id number] / NA Procedures Procedure Name Priority Date/Time Associated Diagnosis Comments EKG 12-LEAD Routine 11/08/2024 2:37 PM CDT HFrEF (heart failure with reduced ejection fraction) ([facility]) ICD CLINIC CHECK Routine 10/31/2024 11:3 4 AM CDT Cardiac defibrillator in place HFrEF (heart failure with reduced ejection fraction) ([facility]) VT (ventricular tachycardia) ([facility]) Ischemic cardiomyopathy from Last 3 Months Results * EKG 12-LEAD (11/08/2024 2:37 PM CDT) Ventricular Rate 61 BPM [facility] Atrial Rate 220 BPM [facility] QRS Duration ms 104 ms [facility] Q-T Interval ms 426 ms [facility] QTC Calculation (Bezet) 428 ms [facility] Calculated R [place] 22 degrees [facility] Interpretation EKG ATRIAL FIBRILLATION WITH OCCASIONAL ventricular-pac ed complexes LOW VOLTAGE QRS POSSIBLE INFERIOR INFARCT ABNORMAL ECG Confirmed by MD Josefina, González ([id number]) on 11/13/2024 7:30:24 AM [facility] 11/08/2024 2:37 PM CDT 11/13/2024 7:30 AM CDT us González Rocha MD ECG ORDERABLES Edited Result - Final [facility]USE from Last 3 Months Insurance MEDICARE [facility] [place] [address] [facility] Advance Directives Documents on File Type Date Recorded Patient Lab Courier Expl anation Adv Directive/Living Will/POA 10/05/2012 5:28 [...] 8:12 AM 12/28/2013 9:45 AM Care Teams Slot Router Relationship Specialty Start Date End Date Ruma Parnell PA [address] [place] [id number] PCP - General Physician Street Sprinkler 03/08/15 Missy Hutson, RN [employer] Folk Arts Instructor 12/29/13 González Rocha MD [address] [place] [address] Track Car Operator Cardiology 02/02/14 Huber Nguyen MD [address] [place] [address] Consulting Physician Electrophysiology 02/02/14 Damon Barakat MD [address] [place] [address] Cardiovascular Disease 05/25/14
--- OUTSIDE RECORDS SUMMARY | 2024-12-29 15:28 | XMS_ITS | Data Portability ---
[facility] Address [address] [place] [address] Care Team Providers Care Concession Manager Name Role Phone BILL CLARK Primary Care Provider Unavailab le Assessment No assessment recorded. Plan of Treatment Reminders Order Date Submit Date Provider Last Modified By Organization Details Last Modified Time Details Appointments ANY 15 2025 10:30A M MIKAYLA Saldivar Not available Not available Not available Lab PSA, total + free, serum or plasma - Free and Total PSA 2024 025 ALEC [facility], [address] [facility], [place], [address], 09/06/2024 14:25:09 HbA1c (hemoglob in A1c), blood 2024 025 [email or web address] [facility], [address] [facility], [place], [address], 08/29/2024 11:46:52 CBC w/ auto diff 2024 025 [email or web address] [facility], [address] [facility], [place], [address], 08/29/2024 11:46:51 BMP, serum or plasma 2024 025 [email or web address] [facility], [address] [facility], [place], [address], 08/29/2024 11:46:52 hepatic function panel, serum 2024 025 [email or web address] [facility], [address] [facility], [place], [address], 08/29/2024 11:46:52 lipid panel, serum 2024 025 [email or web address] [facility], [address], [place], [address], 08/29/2024 11:46:52 PSA, serum or plasma - please cancel if it has not been a full year. 2024 025 [email or web address] [facility], [address], [place], [address], 09/13/2024 12:08:48 HbA1c (hemoglob in A1c), blood - please cancel if it has not been a full year. 2024 025 [email or web address] [facility], [address], [place], [address], 09/13/2024 12:09:15 CBC w/ auto diff - please cancel if it has not been a full year. 2024 025 [email or web address] [facility], [address], [place], [address], 09/13/2024 12:09:41 BMP, serum or plasma - please cancel if it has not been a full year. 2024 025 [email or web address] [facility], [address], [place], [address], 09/13/2024 12:09:06 TSH + free T4, serum - please cancel if it has not been a full year. 2024 025 ALEC [facility], [address], [place], [address], 08/18/2024 10:26:49 hepatic function panel, serum - please cancel if it has not been a full year. 2024 025 [email or web address] [facility], [address], [place], [address], 09/13/2024 12:09:37 lipid panel, serum - please cancel if it has not been a full year. 2024 025 ALEC [facility], [address] , [place], [address], 08/18/2024 10:26:49 PSA, serum or plasma - please cancel if it has not been a full year. 2023 024 [email or web address] [facility], [address], [place], [address], 08/24/2023 12:08:58 HbA1c (hemoglob in A1c), blood 2023 024 ALEC [facility], [address] , [place], [address], 08/17/2023 09:54:26 HbA1c (hemoglob in A1c), blood 2023 024 [email or web address] [facility], [address] [facility], [place], [address], 07/24/2024 16:08:38 CBC w/ auto diff 2023 024 [email or web address] [facility], [address] , [place], [address], 08/24/2023 12:09:04 BMP, serum or plasma 2023 024 [email or web address] [facility], [address] , [place], [address], 08/24/2023 12:09:10 hepatic function panel, serum 2023 024 [email or web address] [facility], [address] [facility], [place], [address], 08/24/2023 12:09:16 vitamin B12 + folate, serum or blood 2023 024 [email or web address] [facility], [address] [facility], [place], [address], 08/24/2023 12:09:29 TSH + free T4, serum 2023 024 [email or web address] [facility], [address], [place], [address], 08/24/2023 12:09:36 hepatic function panel, serum 2023 024 [email or web address] [facility], [address], [place], [address], 07/24/2024 16:08:38 CBC w/ auto diff 2023 024 ALEC [facility], [address], [place], [address], 01/31/2024 09:32:50 BMP, serum or plasma 2023 024 AKRON [facility], [address], [place], [address], 01/31/2024 09:32:50 lipid panel, serum 2023 024 [email or web address] [facility], [address], [place], [address], 08/24/2023 12:09:42 lipid panel, serum 2023 024 AKRON [facility], [address] [facility], [place], [address], 01/31/2024 09:32:49 Referral None recorded. Procedures None recorded. Surgeries None recorded. Imaging None recorded. Medication Orders lorazepam 0.5 mg tablet 2024 025 [facility] [facility], [place], [address], 02/28/2024 11:21:19 lorazepam 0.5 mg tablet 2023 024 [email or web address] [facility], [address] [facility], [place], [address], 08/23/2023 00:27:52 Patient TargetsNo targets recorded. Patient Instructions Encounter Date Encounter Id Patient Instructions Last Modified By Organization Details Last Modified Time 08/29/2024 [id number] A healthy lifestyle: care instructions [email or web address] Not available 08/29/2024 11:46:52 Reason for Referral None Reported. Results Created Date Observation Date Name Description Value Unit Range Abnormal Flag Note LastModifiedBy Organization Detail LastModifiedTime 09/06/19 24 09/06/2023 Blood type and Indir ect antib jaiden scree n panel - Blood ABO and Rh group [type] in blood A POS Histo ry check ed. Not Available Not Available 08/29/2024 03:41:43 09/06/19 24 09/06/2023 Blood type and Indir ect antib jaiden scree n panel - Blood blood group antibody screen [presence] in serum or plasma NEG Not Available Not Available 09/2024 03:41:43 09/06/19 24 09/07/2023 Staph yloco ccus sp ident ified in Speci men by Organ ism speci fic cultu re microorganis m identified in specimen by culture Negati ve for Staphy lococc us aureus (MRSA/ MSSA) Not Available Not Available 03:41:43 09/06/19 24 09/07/2023 Staph yloco ccus sp ident ified in Speci men by Organ ism speci fic cultu re interpretati on and review of laboratory results Normal Not Available Not Available 09/2024 03:41:43 09/06/1909/06/2023 Urina lysis panel - Urine by Autom ated color of urine by auto Yellow text: straw, yellow Not Available Not Available 08/29/2024 03:41:43 09/06/19 24 09/06/2023 Urina lysis panel - Urine by Autom ated clarity in urine by refractometr y automated Clear text: clear Not Available Not Available 08/29/2024 03:41:43 09/06/19 24 09/06/2023 Urina lysis panel - Urine by Autom ated glucose [presence] in urine by test strip 3+ text: negati ve abnormal Not Available Not Available 08/29/2024 03:41:43 09/06/19 24 09/06/2023 Urina lysis panel - Urine by Autom ated bilirubin.to georgi [presence] in urine by test strip Negati ve text: negati ve Not Available Not Available 08/29/2024 03:41:43 09/06/19 24 09/06/2023 Urina lysis panel - Urine by Autom ated ketones [presence] in urine by automated test strip Negati ve text: negati ve Not Available Not Available 08/29/2024 03:41:43 09/06/19 24 09/06/2023 Urina lysis panel - Urine by Autom ated specific gravity of urine by test strip 1.011 low: 1.005h igh: 1.03 Not Available Not Available 08/29/2024 03:41:43 09/06/19 24 09/06/2023 Urina lysis panel - Urine by Autom ated hemoglobin [presence] in urine by test strip Negati ve text: negati ve Not Available Not Available 08/29/2024 03:41:43 09/06/19 24 09/06/2023 Urina lysis panel - Urine by Autom ated pH of urine by test strip 5 pH low: 5pHhig h: 8pH Not Available Not Available 08/29/2024 03:41:43 09/06/19 24 09/06/2023 Urina lysis panel - Urine by Autom ated protein [presence] in urine by test strip Negati ve text: negati ve Not Available Not Available 08/29/2024 03:41:43 09/06/19 24 09/06/2023 Urina lysis panel - Urine by Autom ated urobilinogen [mass/volume ] in urine by automated test strip Negati ve text: negati ve mg/dL Not Available Not Available 08/29/2024 03:41:43 09/06/19 24 09/06/2023 Urina lysis panel - Urine by Autom ated nitrite [presence] in urine by test strip Negati ve text: negati ve Not Available Not Available 08/29/2024 03:41:43 09/06/19 24 09/06/2023 Urina lysis panel - Urine by Autom ated leukocyte esterase [presence] in urine by test strip Negati ve text: negati ve Not Available Not Available 08/29/2024 03:41:43 07/15/20 24 09/06/2023 Urina lysis panel - Urine by Autom ated microscopic method - urine Urine micros copy not indica fredy Not Available Not Available 03:41:43 09/06/19 24 09/06/2023 Urina lysis panel - Urine by Autom ated service comment Cultur e not indica fredy Not Available Not Available 03:41:43 09/06/19 24 09/06/2023 Urina lysis panel - Urine by Autom ated Unknown Analyte Not Available Not Available 09/2024 03:41:43 09/06/19 24 09/06/2023 Urina lysis panel - Urine by Autom ated interpretati on and review of laboratory results Abnorm al Not Available Not Available 03:41:43 09/06/19 24 09/06/2023 INR in Plate let poor plasm a by Coagu latio n assay prothrombin time (PT) 13.5 text: 12.1 - 14.8 sec Not Available Not Available 08/29/2024 03:41:43 09/06/19 24 09/06/2023 INR in Plate let poor plasm a by Coagu latio n assay INR in platelet poor plasma by coagulation assay 1.1 low: 0.9hig h: 1.1 Not Available Not Available 08/29/2024 03:41:43 09/06/19 24 09/06/2023 INR in Plate let poor plasm a by Coagu latio n assay Unknown Analyte Conven tional Warfar in Antico agulan t Therap y: INR Refere nce Range: 2.0-3. 0 Intens gregg Warfar in Antico agulan t Therap y: INR Refere nce Range: 2.5-3. 5 Not Available Not Available 03:41:43 09/06/19 24 09/06/2023 INR in Plate let poor plasm a by Coagu latio n assay interpretati on and review of laboratory results Normal Not Available Not Available 09/2024 03:41:43 09/06/19 24 09/06/2023 CBC W Auto Diffe renti al panel - Blood leukocytes [#/volume] in blood by automated count 5 text: 4.0 - 10.7 x10e9/ L Not Available Not Available 08/29/2024 03:41:43 09/06/19 24 09/06/2023 CBC W Auto Diffe yevgeniy cedeño panel - Blood erythrocytes [#/volume] in blood by automated count 4.14 text: 4.30 - 5.80 x10e12 /L low Not Available Not Available 08/29/2024 03:41:43 09/06/19 24 09/06/2023 CBC W Auto Diffe renti al panel - Blood hemoglobin [mass/volume ] in blood 12.4 g/dL low: 13.3g/ dLhigh : 17.5g/ dL low Not Available Not Available 08/29/2024 03:41:43 09/06/19 24 09/06/2023 CBC W Auto Diffe renti al panel - Blood hematocrit [volume fraction] of blood by automated count 39.1 % low: 38.7%h igh: 51.1% Not Available Not Available 08/29/2024 03:41:43 09/06/19 24 09/06/2023 CBC W Auto Diffe yevgeniy cedeño panel - Blood MCV [entitic mean volume] in red blood cells by automated count 94.4 fL low: 80fLhi gh: 98fL Not Available Not Available 08/29/2024 03:41:43 09/06/19 24 09/06/2023 CBC W Auto Diffe yevgeniy al panel - Blood MCH [entitic mass] by automated count 30 pg low: 26.7pg high: 33.6pg Not Available Not Available 08/29/2024 03:41:43 09/06/19 24 09/06/2023 CBC W Auto Diffe yevgeniy cedeño panel - Blood MCHC [entitic mass/volume] in red blood cells by automated count 31.7 g/dL low: 31.7g/ dLhigh : 36.3g/ dL Not Available Not Available 08/29/2024 03:41:43 09/06/19 24 09/06/2023 CBC W Auto Diffe renti al panel - Blood erythrocyte [distwidth] in red blood cells by automated count 12.5 % low: 11.3%h igh: 14.8% Not Available Not Available 08/29/2024 03:41:43 09/06/19 24 09/06/2023 CBC W Auto Diffe renti al panel - Blood platelets [#/volume] in blood by automated count 141 text: 150 - 420 x10e9/ L low Not Available Not Available 08/29/2024 03:41:43 09/06/19 24 09/06/2023 CBC W Auto Diffe renti al panel - Blood platelet [entitic mean volume] in blood by automated count 11.6 fL low: 7.8fLh igh: 11.4fL high Not Available Not Available 08/29/2024 03:41:43 09/06/19 24 09/06/2023 CBC W Auto Diffe renti al panel - Blood neutrophils/ leukocytes in blood by automated count 65.2 % low: 41%hig h: 74% Not Available Not Available 08/29/2024 03:41:43 09/06/19 24 09/06/2023 CBC W Auto Diffe renti al panel - Blood lymphocytes/ leukocytes in blood by automated count 22.6 % low: 17%hig h: 47% Not Available Not Available 08/29/2024 03:41:43 09/06/19 24 09/06/2023 CBC W Auto Diffe renti al panel - Blood monocytes/le ukocytes in blood by automated count 8.4 % low: 3%high : 11% Not Available Not Available 08/29/2024 03:41:43 09/06/19 24 09/06/2023 CBC W Auto Diffe renti al panel - Blood eosinophils/ leukocytes in blood by automated count 2.2 % low: 0%high : 7% Not Available Not Available 08/29/2024 03:41:43 09/06/19 24 09/06/2023 CBC W Auto Diffe renti al panel - Blood basophils/le ukocytes in blood by automated count 1.2 % low: 0%high : 1.6% Not Available Not Available 08/29/2024 03:41:43 09/06/19 24 09/06/2023 CBC W Auto Diffe renti al panel - Blood immature granulocytes /leukocytes in blood by automated count 0.4 % low: 0%high : 1% Not Available Not Available 08/29/2024 03:41:43 09/06/19 24 09/06/2023 CBC W Auto Diffe renti al panel - Blood neutrophils [#/volume] in blood by automated count 3.26 text: 1.60 - 7.50 x10e9/ L Not Available Not Available 08/29/2024 03:41:43 09/06/19 24 09/06/2023 CBC W Auto Diffe renti al panel - Blood lymphocytes [#/volume] in blood by automated count 1.13 text: 1.00 - 4.40 x10e9/ L Not Available Not Available 08/29/2024 03:41:43 09/06/19 24 09/06/2023 CBC W Auto Diffe renti al panel - Blood monocytes [#/volume] in blood by automated count 0.42 text: 0.15 - 1.00 x10e9/ L Not Available Not Available 08/29/2024 03:41:43 09/06/19 24 09/06/2023 CBC W Auto Diffe renti al panel - Blood eosinophils [#/volume] in blood 0.11 text: 0.00 - 0.60 x10e9/ L Not Available Not Available 08/29/2024 03:41:43 09/06/19 24 09/06/2023 CBC W Auto Diffe renti al panel - Blood basophils [#/volume] in blood by automated count 0.06 text: 0.00 - 0.13 x10e9/ L Not Available Not Available 08/29/2024 03:41:43 09/06/19 24 09/06/2023 CBC W Auto Diffe renti al panel - Blood interpretati on and review of laboratory results Abnorm al Not Available Not Available 03:41:43 09/06/19 24 09/06/2023 Basic metab olic 2000 panel - Serum or Plasm a glucose [mass/volume ] in serum or plasma 93 mg/dL low: 70mg/d Lhigh: 105mg/ dL Not Available Not Available 08/29/2024 03:41:43 09/06/19 24 09/06/2023 Basic metab olic 2000 panel - Serum or Plasm a sodium [moles/volum e] in serum or plasma 140 mmol/ L low: 136mmo l/Lhig h: 145mmo l/L Not Available Not Available 08/29/2024 03:41:43 09/06/19 24 09/06/2023 Basic metab olic 1999 panel - Serum or Plasm a potassium [moles/volum e] in serum or plasma 4.3 mmol/ L low: 3.5mmo l/Lhig h: 5.1mmo l/L Not Available Not Available 08/29/2024 03:41:43 09/06/19 24 09/06/2023 Basic metab olic 1999 panel - Serum or Plasm a chloride [moles/volum e] in serum or plasma 109 mmol/ L low: 98mmol /Lhigh : 107mmo l/L high Not Available Not Available 08/29/2024 03:41:43 09/06/19 24 09/06/2023 Basic metab olic 1999 panel - Serum or Plasm a carbon dioxide, total [moles/volum e] in serum or plasma 24 mmol/ L low: 22mmol /Lhigh : 29mmol /L Not Available Not Available 08/29/2024 03:41:43 09/06/19 24 09/06/2023 Basic metab olic 1999 panel - Serum or Plasm a calcium [mass/volume ] in serum or plasma 9.2 mg/dL low: 8.4mg/ dLhigh : 10.4mg /dL Not Available Not Available 08/29/2024 03:41:43 09/06/19 24 09/06/2023 Basic metab olic 1999 panel - Serum or Plasm a anion gap in blood by calculation 7 mmol/ L low: 6mmol/ Lhigh: 16mmol /L Not Available Not Available 08/29/2024 03:41:43 09/06/19 24 09/06/2023 Basic metab olic 1999 panel - Serum or Plasm a urea nitrogen [mass/volume ] in serum or plasma 12 mg/dL low: 7mg/dL high: 26mg/d L Not Available Not Available 08/29/2024 03:41:43 09/06/19 24 09/06/2023 Basic metab olic 1999 panel - Serum or Plasm a creatinine [mass/volume ] in serum or plasma 1.45 mg/dL low: 0.72mg /dLhig h: 1.25mg /dL high Not Available Not Available 08/29/2024 03:41:43 09/06/19 24 09/06/2023 Basic metab olic 1999 panel - Serum or Plasm a glomerular filtration rate [volume rate/area] in serum, plasma or blood by creatinine-b ased formula (CKD-epi)/1. 73 sq M 50 text: >=90 mL/min /1.73 m2 low Not Available Not Available 08/29/2024 03:41:43 09/06/19 24 09/06/2023 Basic metab olic 2000 panel - Serum or Plasm a interpretati on and review of laboratory results Abnorm al Not Available Not Available 03:41:43 11/22/19 24 11/23/2023 Magne sium [Mass /volu me] in Serum or Plasm a magnesium 2.1 mg/dL low: 1.5mg/ dLhigh : 2.5mg/ dL Test Perfo rmed at: [address] [place] [address] HAL JAMES MD Not Available Not Available 08/29/2024 03:41:44 11/22/19 24 11/23/2023 Basic metab olic 2000 panel - Serum or Plasm a glucose 85 mg/dL low: 65mg/d Lhigh: 99mg/d L Fasti ng refer ence inter genie Not Available Not Available 08/29/2024 03:41:44 11/22/19 24 11/23/2023 Basic metab olic 2000 panel - Serum or Plasm a BUN 12 mg/dL low: 7mg/dL high: 25mg/d L Not Available Not Available 08/29/2024 03:41:44 11/22/19 24 11/23/2023 Basic metab olic 2000 panel - Serum or Plasm a creatinine 1.66 mg/dL low: 0.7mg/ dLhigh : 1.28mg /dL high Not Available Not Available 08/29/2024 03:41:44 11/22/19 24 11/23/2023 Basic metab olic 2000 panel - Serum or Plasm a glomerular filtration rate [volume rate/area] in serum, plasma or blood by cystatin C-based formula/1.73 sq M 42 text: > or = 60 mL/min /1.73m 2 low Not Available Not Available 08/29/2024 03:41:44 11/22/19 24 11/23/2023 Basic metab olic 2000 panel - Serum or Plasm a BUN/creatini ne ratio 7 text: 6 - 22 (calc) Not Available Not Available 08/29/2024 03:41:44 11/22/19 24 11/23/2023 Basic metab olic 1999 panel - Serum or Plasm a sodium 139 mmol/ L low: 135mmo l/Lhig h: 146mmo l/L Not Available Not Available 08/29/2024 03:41:44 11/22/19 24 11/23/2023 Basic metab olic 1999 panel - Serum or Plasm a potassium 4.1 mmol/ L low: 3.5mmo l/Lhig h: 5.3mmo l/L Not Available Not Available 08/29/2024 03:41:44 11/22/19 24 11/23/2023 Basic metab olic 1999 panel - Serum or Plasm a chloride 104 mmol/ L low: 98mmol /Lhigh : 110mmo l/L Not Available Not Available 08/29/2024 03:41:44 11/22/19 24 11/23/2023 Basic metab olic 1999 panel - Serum or Plasm a CO2 28 mmol/ L low: 20mmol /Lhigh : 32mmol /L Not Available Not Available 08/29/2024 03:41:44 11/22/19 24 11/23/2023 Basic metab olic 1999 panel - Serum or Plasm a calcium 9 mg/dL low: 8.6mg/ dLhigh : 10.3mg /dL REPOR T COMME NT: FASTI NG:EARL S Test Perfo rmed at: [facility] [id number] [place] [address] HAL JAMES MD Not Available Not Available 08/29/2024 03:41:44 11/22/19 24 11/23/2023 Basic metab olic 1999 panel - Serum or Plasm a interpretati on and review of laboratory results Abnorm al Not Available Not Available 03:41:44 09/05/19 25 09/06/2024 PSA (FREE AND TOTAL ) PSA, total 1.5 NG/mL < or = 4.0 Not Available [facility] [address] [place], [address], 09/06/2024 14:25:09 09/05/19 25 09/06/2024 PSA (FREE AND TOTAL ) PSA, free 0.5 NG/mL Not Available [employer] [facility] [address] [place], [address], 09/06/2024 14:25:09 09/05/19 25 09/06/2024 PSA (FREE AND TOTAL ) PSA, % free 33 %_(ca lc) >25 PSA(n g/mL) Free PSA(% ) Estim ated( x) Proba bilit y of Cance r(as% ) 0-2.5 (*) Appro x. 1 2.6-4 .0(1) 0-27( 2) 24(3) 4.1-1 0(4) 0-10 56 11-15 28 16-20 20 21-25 16 >or =26 8 >10(+ ) N/A >50 Refer ences :(1)C tiffanie na et al.:U rolog y 60: 469-4 74 (2001 ) (2)Ca shannan jaramillo et al.:J .Urol 168: 922-9 25 (2001 ) Free PSA(% ) Sensi tivit y(%) Speci ficit y(%) < or = 25 85 19 < or = 30 93 9 (3)Amber jaramillo et al.:J AMA 277: 1452- 1455 (1996 ) (4)Ca shannan jaramillo et al.:J AMA 279: 1542- 1547 (1997 ) (x)Th chito estim ates vary with age, ethni city, famil y histo ry and KARINE resul ts. (*)Th e diagn ostic usefu lness of % Free PSA has not been estab lishe d in patie nts with total PSA below 2.6 ng/mL (+)In men with PSA above 10 ng/mL , prost ate cance r risk is deter mined by total PSA alone . The Total PSA value from this assay syste m is stand ardiz ed again st the equim olar PSA stand herminio. The test resul t will be appro ximat javed 20% highe r when edwin red to the WHO-s tanda rdize d Total PSA (Siem ens assay ). Edwin rison of seria l PSA resul ts shoul d be inter prete d with this fact in mind. PSA was perfo rmed using the Beckm an Coult er Immun oassa y metho d. Value s obtai sia from diffe rent assay metho ds canno t be used inter espinoza eably . PSA level s, regar dless of value , shoul d not be inter prete d as absol cullen evide nce of the prese nce or absen ce of disea se. Not Available [employer] [facility] [address] [place], [address], 09/06/2024 14:25:09 Result Notes None recorded. Problems Name Problem SNOMED Code Status Onset Date Resolution Date Notes Provider Name and Address Organization Details Recorded Time Chronic congestive heart failure 26108035 Active 2023 MIKAYLA Saldivar Attn: Christopher fong,[address] [place], [place], [address] [place] [address] 2, [facility] 4 11:28:10 Atrial fibrillation 24399041 Active 2023 MIKAYLA Saldivar Attn: Christopher fong,[address] [place], [address] [place] [address] 2, [facility] 4 11:28:10 Hyperlipidemia 23606922 Active 2023 MIKAYLA Saldivar Attn: Christopher fong,[address] [place], [address], [facility] 4 11:28:12 Gastroesophage al reflux disease without esophagitis 592042984 Active 2023 MIKAYLA Saldivar Attn: Christopher fong,[address] [place], [address], [facility] 4 11:28:13 Blood glucose outside reference range 344862908 Active 2023 MIKAYLA Saldivar Attn: Christopher fong,[address] [place], [address], [place] - [facility] 4 11:28:15 Long-term drug therapy Active 2023 MIKAYLA Saldivar Attn: Christopher hetal,[address] [facility], [place], [address], [place] - [facility] 4 11:28:16 Anxiety 20498785 Active 2023 MIKAYLA Saldivar Attn: Christopher hetal,[address] [facility], [place], [address], [place] [facility] 4 11:29:47 Body mass index 20-24 - normal 259916329 Active 2023 MIKAYLA Saldivar Attn: Christopher hetal,[address] [facility], [place], [address], [place] - [facility] 5 11:37:27 Impaired glucose tolerance 5840007 Active 2024 MIKAYLA Saldivar Attn: Christopher hetal,[address] [facility], [place], [address], [place] - [facility] 5 11:12:12 Chronic kidney disease 920762571 Active 2024 MIKAYLA Saldivar Attn: Christopher hetal,[address] [facility], [place], [address], [place] - [facility] 5 11:18:29 Cardiac defibrillator in situ 986755870 Active 2024 MIKAYLA Saldivar Attn: Christopher fong,[address] [facility], [place], [address], [place] - [facility] 5 11:56:04 Problem Notes None recorded. Procedures Surgical History Date Name Laterality Status Provider Name and Address Organization Details Recorded Time Pacemaker completed Osmel Veras [facility] 08/04/2023 11:31:35 Vasectomy completed EZ Bell - [facility] 08/04/2023 11:31:41 Defibrillator completed EZ Bell - [facility] 08/04/2023 11:31:46 Imaging Results None recorded. Procedure Notes None recorded. Medical Equipment None Reported. Medications Name Sig Start Date Stop Date Status Note LastModified by Organization Details LastModified Time atorvastati n 20 mg tablet TAKE 1 TABLET DAILY 2024 active Not Available Not Available Not Avai lable carvedilol 12.5 mg tablet Take 1 tablet every day by oral route for 90 days. active Not Available Not Available No t Available fluorouraci l 5 % topical cream APPLY TOPICALLY TO THE AFFECTED AREA TWICE A WEEK FOR 2 WEEKS AND LAYER WITH AQUAPHOR OR VASELINE FOR DISCOMFOR T. 08/03 completed Not Available Not Available Not Available clopidogrel 75 mg tablet active Not Available Not Available Not Available acyclovir 400 mg tablet TAKE 2 TABLETS DAILY 2024 active prn Not Available Not Available Not Avai lable tramadol 50 mg tablet TAKE 1 TABLET EVERY 4 TO 6 HOURS NEEDED FOR PAIN. DO NOT EXCEED 4 TABLETS IN 24 HOURS active Not Available Not Available No t Available lorazepam 0.5 mg tablet TAKE 1 TABLET THREE TIMES A DAY NEEDED 2024 active Not Available Not Available Not Avai lable pantoprazol e 40 mg tablet,víctor yed release TAKE 1 TABLET DAILY 2024 active Not Available Not Available Not Avai lable mupirocin 2 % topical ointment 02/27 completed Not Available Not Available Not Available digoxin 125 mcg (0.125 mg) tablet 08/03 completed Not Available Not Available Not Available furosemide 20 mg tablet Take 1 tablet every day by oral route for 90 days. active Not Available Not Available No t Available eplerenone 25 mg tablet 02/27 completed Not Available Not Available Not Available Vitamin D3 2000 iu day active Not Available Not Available No t Available Eliquis 5 mg tablet TAKE 1 TABLET BY MOUTH TWICE DAILY 02/27 completed Not Available Not Available Not Available Jardiance 10 mg tablet active Not Available Not Available Not Available Entresto 24 mg-26 mg tablet active Not Available Not Available Not Available Vitals Date Recorded Systolic And Diastolic Provider Name and Address Organization Details Last Updated DateTime 08/04/2023 110/70 mm[Hg] MIKAYLA Saldivar Attn: Accounting,[address] [facility], [place], [address], [facility] 08/04/2023 11:23:14 Date Recorded Body height Respiratory rate Body mass index (BMI) Body weight Oxygen saturation Oxygen saturation in Arterial blood by Pulse oximetry Heart rate Systolic And Diastolic Provider Name and Address Organization Details Last Updated DateTime 4 167.64 cm 20 /min 23.9 kg/m2 53715.6 7 g 99 % 99 % 70 /min 128/62 mm[Hg] Osmel Veras MA [facility] 4 11:33:35 Date Recorded Systolic And Diastolic Provider Name and Address Organization Details Last Updated DateTime 08/29/2024 100/70 mm[Hg] MIKAYLA Saldivar Attn: Accounting,[address] [place], [address], [facility] 08/29/2024 11:56:38 Date Recorded Body weight Body mass index (BMI) Body height Respiratory rate Oxygen saturation Oxygen saturation in Arterial blood by Pulse oximetry Heart rate Systolic And Diastolic Provider Name and Address Organization Details Last Updated DateTime 5 48101.7 9 g 21.5 kg/m2 167.64 cm 18 /min 99 % 99 % 72 /min 116/72 mm[Hg] Osmel Veras MA [facility] 5 11:32:22 Social History Question Answer Notes LastModified by Organizat ion Details LastModified Time Tobacco Smoking Status Never Smoker Osmel Veras MA null, [facility] 08/04/2023 11:02:17 Do You Have An Advance Directive? Yes Information not available 08/04/2023 Are You Blind Or Do You Have Difficulty Seeing? Yes Glasses Information not available 08/04/2023 What Is Your Level Of Caffeine Consumption? Occasional Soda, Information not available 08/04/2023 In The 14 Days Before Symptom Onset, Have You Had Close Contact With A Laboratory-confir med COVID-19 While That Case Was Ill? No Information not available 08/03/2023 In The 14 Days Before Symptom Onset, Have You Had Close Contact With A Person Who Is Under Investigation For COVID-19 While That Person Was Ill? No Information not available 08/03/2023 Have You Been To An Area Known To Be High Risk For COVID-19? No Information not available 08/03/2023 Are You Deaf Or Do You Have Serious Difficulty Hearing? No Information not available 08/04/2023 What Type Of Diet Are You Following? REGULAR Information not available 08/04/2023 Are There Any Guns Present In Your Home? No Information not available 08/04/2023 What Was The Date Of Your Most Recent Tobacco Screening? 08/29/2024 Information not available 08/29/2024 Do You Use Your Seat Belt Or Car Seat Routinely? Yes Information not available 08/03/2023 Do You Have Smoke And Carbon Monoxide Detectors In Your Home? Yes Information not available 08/03/2023 Do You Use Sunscreen Routinely? No Information not available 08/04/2023 Has Tobacco Cessation Counseling Been Provided? Yes Information not available 08/03/2023 On What Date Was Tobacco Cessation Counseling Provided? 08/29/2024 Information not available 08/29/2024 Sex: Male Functional Status Question Answer Note LastModified by Organizat ion Details LastModified Time Do you use any illicit or recreational drugs? No Information not available 08/29/2024 Do you or have you ever used any other forms of tobacco or nicotine? No Information not available 08/04/2023 What is your level of alcohol consumption? None Information not available 08/04/2023 Are you currently employed? No Information not available 08/29/2024 Are you able to care for yourself independently? Yes Information not available 08/03/2023 Mental Status None recorded. Family History Relationship Description Onset Age of this Age Resolved Age Notes LastModified by Organization Details LastModified Time Unspecified Relation Malignant neoplasm of colon tcarterma Not available 2023 11:31:59 Medical History Condition Response Coronary Artery Disease N Other N High Blood Pressure N Atrial Fibrillation Y Kidney or Bladder Problems Y Thyroid Problems N GI Problems N Depression N COPD N Blood Clots Y Skin Problems N Anemia N Heart Attack ([place]) N Anxiety Disorder Y Diabetes N Muscle, Joint, or Bone Problems N Seizures/Epilepsy N Acid Reflux (GERD) Y Cancer N Stroke N Asthma N Allergies N High Cholesterol N Hepatitis N Liver Disease N Headaches N Heart Failure Y Osteoporosis N Immunizations Vaccine Type Date Status Note Provider Nam e and Address Organization Details Recorded Time Influenza, split virus, trivalent, PF 3 completed Not Available [facility] 08/29/2024 11:20:10 Influenza, split virus, trivalent, PF 4 completed Not Available [facility] 08/29/2024 11:20:10 pneumococcal polysaccharide PPV23 4 completed Not Available [facility] 08/29/2024 11:20:10 Pneumococcal Conjugate, unspecified formulation 4 completed Not Available [facility] 08/29/2024 11:20:10 Influenza, high-dose, trivalent, PF 6 completed Not Available [facility] 08/29/2024 11:20:10 Influenza, adjuvanted, trivalent, PF 7 completed Not Available [facility] 08/29/2024 11:20:10 Influenza, high-dose, trivalent, PF 8 completed Not Available [facility] 08/29/2024 11:20:10 Influenza, high-dose, trivalent, PF 9 completed Not Available [facility] 08/29/2024 11:20:10 Influenza, high-dose, quadrivalent, PF 0 completed Not Available [facility] 08/29/2024 11:20:10 COVID-19, mRNA, LNP-S, PF, 100 mcg/0.5mL dose or 50 mcg/0.25mL dose 1 completed Not Available [facility] 08/29/2024 11:20:10 COVID-19, mRNA, LNP-S, PF, 100 mcg/0.5mL dose or 50 mcg/0.25mL dose 1 completed Not Available [facility] 08/29/2024 11:20:10 Influenza, high-dose, quadrivalent, PF 1 completed Not Available [facility] 08/29/2024 11:20:10 COVID-19, mRNA, LNP-S, PF, 100 mcg/0.5mL dose or 50 mcg/0.25mL dose 1 completed Not Available [facility] 08/29/2024 11:20:10 COVID-19, mRNA, LNP-S, PF, 100 mcg/0.5mL dose or 50 mcg/0.25mL dose 2 completed Not Available [facility] 08/29/2024 11:20:10 Influenza, adjuvanted, quadrivalent, PF 2 completed Not Available [facility] 08/29/2024 11:20:10 COVID-19, mRNA, LNP-S, bivalent, PF, 50 mcg/0.5 mL or 25mcg/0.25 mL dose 3 completed Not Available [facility] 08/29/2024 11:20:10 Influenza, adjuvanted, quadrivalent, PF 3 completed Not Available [facility] 08/29/2024 11:20:10 COVID-19, mRNA, LNP-S, PF, 50 mcg/0.5 mL 3 completed Not Available [facility] 08/29/2024 11:20:10 Influenza, high-dose, trivalent, PF 4 completed Not Available [facility] 08/29/2024 11:20:10 Past Encounters Encounter ID Performer Location Encounter Start Date Encounter Closed Date Diagnosis/Indication Diagnosis SNOMED-CT Code Diagnosis ICD10 Code Diagnosis IMO Codes Diagnosis Note [id number] Riley Sullivan MD [facility] [address] [facility] [address] [place] [id number] 08/04/2023 10:47:59 08/04/2023 13:53:24 Chronic congestive heart failure 68051507 I50.9 stable at this time. on entresto and jardiance plus existing regimen. Atrial fibrillation 4943 6004 I48.91 stable. on eliquis 5mg bid. Hyperlipidemia 30830056 E78.5 stable on statin therapy. lipids due fasting now and later. Gastroesop hageal reflux disease without esophagitis 874787895 K21.9 stable on PPI therapy. no c/o. Long-term drug therapy 000109259 Z79.899 labs are ordered for now and for prior to next appt in 6 months. Screening for malignant neoplasm of prostate 161330836 Z12.5 psa due now Blood gluc ose outside reference range 044375558 R73.09 a1c due now and later. hx of IGT Anxiety 24517534 F41.9 refill lorazepam 0.5mg tid PRN Body mass index 20-24 - normal 597024259 Z68.23 [id number] Riley Sullivan MD [facility] [employer] [address] [place] [address] 02/28/2024 10:11:28 02/28/2024 12:19:12 Chronic congestive heart failure 25130203 I50.9 stable at this time. on entresto and jardiance plus existing regimen. He got a mayda to help get coverage for these scripts. He reports that his ejection fraction was up to 29% which is the best it has been in years Atrial fibrillation 4943 6004 I48.91 could not afford eliquis so cardiology placed him on plavix 75mg daiy. Hyperlipidemia 85831462 E78.5 stable on statin therapy. Gastroesop hageal reflux disease without esophagitis 924371009 K21.9 stable on PPI therapy. no c/o. Anxiety 48123332 F41.9 lorazepam 0.5mg tid PRN Long-term drug therapy 395492455 Z79.899 labs are ordered for now and for prior to next appt in 6 months. Screening for malignant neoplasm of prostate 444107314 Z12.5 psa due in August 11, 2024 Impaired g lucose tolerance 4535287 R73.03 6.2% A1c on his summer labs. He declined an A1c because he did not want to sign an ABN order but reassured patient that proper coating is in place and we do need to get this test on the next lab draw Chronic ki dney disease 506991570 N18.[address] New. Last creatinine . [id number] Riley Sullivan MD [facility] [employer] [address] [place] [address] 08/29/2024 11:18:19 08/29/2024 12:12:32 Anxiety 93156418 F41.9 lorazepam 0.5mg tid PRN Body mass index 20-24 - normal 027555877 Z68.21 55148296 Chronic co ngestive heart failure 47185396 I50.9 stable at this time. on entresto and jardiance plus existing regimen. Seeing Dr. Rocha for cardiology twice yearly. Atrial fibrillation 4943 6004 I48.91 still irregular. hx of watchman procedure. Hyperlipidemia 06959078 E78.5 stable on statin therapy. lipids due fasting now and later. Gastroesop hageal reflux disease without esophagitis 435522757 K21.9 stable on PPI therapy. no c/o. Blood gluc ose outside reference range 090660174 R73.09 a1c due now and later. hx of IGT Long-term drug therapy 709513331 Z79.899 labs are ordered for now and for prior to next appt in 6 months. Prostate s pecific antigen above reference range 212458996 R97.20 568733 PSA went 1.05 to 3.55 in one calendar year. Cardiac de fibrillator in situ 705209005 Z95.975 7904061 History noted Health Concerns Section Related Observation LastModified by Organization Detai ls LastModified Time None Recorded Concern Status LastModified by Organization Details LastModified Time None Recorded Advance Directives Directive Y: Payers Insurance Date Sequence Insurance Name Policy Number Policy Russell Covered Member ID Russell Member ID Guarantor Name 08/29/2024 1 [place] Good Hwang [id number] Good Hwang 08/29/2024 [place] [facility] Good Hwang [id number] Good Hwang 09/21/2024 2 [employer] [place] (MEDICARE SUPPLEMENT) Good Hwang [id number] Good Hwang Notes Date Note Type Note Provider Name and Address Organization Details Recorded Time 4 text/html HyperlipidemiaReported by Patientpt is on atorvastatin 20mg daily. stable. CHF F/UReported by Patientpt sees cardiology very often for his CHF hx and a-fib hx . hx of watchman procedure. on multiple medicines. Anxiety/DepressionReported by Patientpt takes lorazepam 0.5mg tid PRN. stable. Reflux/GERDReported by Patientstable on pantoprazole 40mg daily. MIKAYLA Saldivar Attn: Accounting,[address], [place], [address], [facility] 08/23/2023 00:32:33 5 text/html HyperlipidemiaReported by Patientpt is on atorvastatin 20mg daily. stable. CHF F/UReported by Patientpt sees cardiology very often for his CHF hx and a-fib hx . hx of watchman procedure. on multiple medicines. Anxiety/DepressionReported by Patientpt takes lorazepam 0.5mg tid PRN. stable. Reflux/GERDReported by Patientstable on pantoprazole 40mg daily. MIKAYLA Saldivar Attn: Accounting,[address], [place], [address], [facility] 02/28/2024 22:35:36 5 text/html HyperlipidemiaReported by Patientpt is on atorvastatin 20mg daily. stable. CHF F/UReported by Patientpt sees cardiology very often for his CHF hx and a-fib hx . hx of watchman procedure. on multiple medicines. Anxiety/DepressionReported by Patientpt takes lorazepam 0.5mg tid PRN. stable. Reflux/GERDReported by Patientstable on pantoprazole 40mg daily. MIKAYLA Saldivar Attn: Accounting,[address], [place], [address], [facility] 09/21/2024 11:34:40
--- OUTSIDE RECORDS SUMMARY | 2024-12-29 15:28 | XMS_ITS | Clinical Summary ---
Author Organization [facility] on Address [address] [facility] [place] [address] Phone Care Team Providers Care Waterproofing Mixer Name Role Phone Ruma Smith Primary Care Provider [phone] Allergies Active Allergy Reactions Criticality Noted Date [...] 2024 Insurance MEDICARE PART A AND B [facility] Care Teams Waterproofing Mixer Relationship Specialty Start Date End Date Ruma Smith PA PCP - General Physician Restaurant Server 11/02/16
--- OUTSIDE RECORDS SUMMARY | 2024-12-29 15:28 | XMS_ITS | Encounter Summary ---
Author Organization [facility] Health Address [address] [place] [address] Care Team Providers Care Highwall Drill Operator Name Role Phone Missy Hutson RN Unavailable González Rocha MD Unavailable [phone] Huber Nguyen MD Unavailable [phone] Damon Barakat MD Unavailable [phone] Ruma Parnell Primary Care Pr ovider Damon Barakat MD Unavailable [phone] Damon Barakat MD Unavailable [phone] Ruma Parnell Unavailable Encounter Details Date Type Department Care Team (Late st Contact Info) Description 06/29/2012 [facility] Damon Barakat MD [address] [facility] [address] [place] [address] Social History Tobacco Use Types Packs/Day Years [...] st Contact Info) Description 01/30/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 Clinical Support [facility] [address] [place] [address] [address] [place] [address] 05/01/2025 7:00 AM CDT Clinical Support [facility] [address] [place] [address] [address] [place] [address] 05/16/2025 1:00 PM CDT Office Visit [facility] [address] [place] [address] [address] [place] [address] Gonzá[place] [address] [place] [address] [address] [place] [address] 07/31/2025 7:00 AM CDT Clinical Support [facility] [address] [place] [address] [address] [place] [address] documented as of this encounter Visit Diagnoses Not on filedocumented in this encounter Care Teams Highwall Drill Operator Relationship Specialty Start Date End Date Ruma Parnell PA [address] [place] [phone] PCP - General Physician Reheater Helper 03/08/15 Damon Barakat MD [address] [place], [place] [address] [address] PCP - Attributed-MSSP 11/22/18 05/28/19 [place] [address] [place] [address] [address] [place] [address] PCP - Attributed-MSSP 07/23/18 09/21/18 Ruma Parnell PA [address] [place] [id number] PCP - Attributed-MSSP 09/22/18 11/21/18 Missy Hutson, RN Senior Chemical Engineer 12/29/13 González Rocha MD [address] [place] [address] Client Coordinator Cardiology 02/02/14 Huber Nguyen MD [address] [place] [address] Consulting Physician Electrophysiology 02/02/14 Damon Barakat MD [address] [place] [address] Cardiovascular Disease 05/25/14 documented as of this encounter
--- OUTSIDE RECORDS SUMMARY | 2024-12-29 15:28 | XMS_ITS | Clinical Summary ---
Author Organization [address] [place] [address] Care Team Providers Care Industrial Controls Technician Name Role Phone Ruma Smith Primary Care Pr ovider Medications No known medications Active Problems No known active problems Encounters Date Type Department Care Team Description 10/19/2024 11:45 AM CDT Procedure visit [facility] [address] [place] [phone] Sarah Veras Fitting and adjustment of hearing aid (Primary Dx) from Last 3 Months Immunizations Immunization Administration Dates Next Due Moderna SARS-CoV-2 Monovalent Vaccination (12+ Y RS) 05/13/2020,04/09/2020 Social History Tobacco Use Types Packs/Day Years Used Date Smoking Tobacco: Unknown Sex and Gender Information Value Date Recorded Sex Assigned at Not on file Legal Sex 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
[2024-12-29 15:42] LABS: Hematocrit 35.3 % (42.0-52.0); Hemoglobin 11.9 g/dL (14.0-18.0); Immature Granulocyte Percent A 0.3 % (0-0.5); Immature Platelet Fraction Pct 6.9 % (0.9-11.2); Lymphocytes Absolute Auto 0.48 K/mm3 (0.9-3.2); Mean Corpuscular HGB Conc 33.7 g/dl (32-36); Mean Corpuscular Hemoglobin 31.1 pg (26-34); Mean Corpuscular Volume 92.2 fl (80-100); Nucleated Red Blood Cells Absolute Auto 0.000 K/mm3 (0.0-0.012); Nucleated Red Blood Cells Perc 0.0 % (0.0-0.2); Platelet Count Result 127 k/mm3 (150-375); Red Blood Count 3.83 M/mm3 (4.6-6.20); White Blood Count 11.5 K/mm3 (4.5-10.0)
[2024-12-29 15:50] LABS: Alanine Aminotransferase 13 U/L (6-50); Albumin Level 4.0 g/dL (3.5-5.1); Alkaline Phosphatase 75 U/L (38-126); Anion Gap 11 mmol/L (4-12); Aspartate Amino Transferase 20 U/L (17-59); Bilirubin,Total 1.4 mg/dL (0.2-1.3); Blood Urea Nitrogen 14 mg/dL (9-20); Calcium 9.0 mg/dL (8.4-10.2); Carbon Dioxide 20 mmol/L (22-30); Chloride 100 mmol/L (98-107); Estimated CRCL calculation 33 ml/min; Estimated Glomerular Filt Rate 45; Glucose 126 mg/dL (65-110); Potassium 3.7 mmol/L (3.4-5.0); Sodium 131 mmol/L (137-145); Total Protein 7.1 g/dL (6.3-8.2)
[2024-12-29 15:56] LABS: INR 1.1; Prothrombin Time 13.9 Seconds (11.1-14.7)
[2024-12-29 15:57] LABS: Partial Thromboplastin Time 33.8 Seconds (22.3-36.8)
[2024-12-29 16:05] LABS: NT Pro B Type Natriuretic Pept 13900 pg/mL (19.9-100); Troponin I 0.068 ng/mL (0.000-0.034)
--- NOTE | 2024-12-29 18:10 | ED.SOB ---
HPI - SOB/Dyspnea General Chief Complaint: Shortness of Breath/Dyspnea Stated Complaint: HX CHF FEELS SHORT OF BREATH Time Seen by Provider: 12/29/24 15:07 Source: patient and family Mode of arrival: ambulatory Limitations: no limitations History of Present Illness HPI Narrative: 79-year-old with a history of CAD, CHF, chronic atrial fibrillation was brought in by his with the complaints of shortness of breath, confusion for past few days. Patient mentioned that they were in a hotel on the weekend and while he was trying to bend to flower buncher or picker staff started having severe back pain. He was prescribed at tramadol and cyclobenzaprine and and ever since then he has been confused. He feels better today. Denies any chest pain. No history of fever or chills. MD elicited complaint: shortness of breath Pertinent past history: congestive heart failure Onset (ago): week(s) (1) Exacerbating factors: nothing Relieving factors: nothing Related Data Home Medications ?Medication ?Instructions ?Recorded ?Confirmed ?Last Taken ?Type acyclovir 400 mg tablet 400 mg PO BID 03/02/22 11/07/24 Unknown History atorvastatin 20 mg tablet 20 mg PO DAILY 03/02/22 11/07/24 Unknown History carvedilol 6.25 mg tablet 6.25 mg PO Q12H 03/02/22 11/07/24 Unknown History empagliflozin 10 mg tablet 10 mg PO DAILY 03/02/22 11/07/24 Unknown History (Jardiance) furosemide 20 mg tablet 20 mg PO .PRN 03/02/22 11/07/24 Unknown History lorazepam 0.5 mg tablet 0.5 mg PO .take 3 tablets QHS 03/02/22 11/07/24 Unknown History pantoprazole 40 mg tablet,delayed 40 mg PO DAILY 03/02/22 11/07/24 Unknown History release sacubitril 24 mg-valsartan 26 mg 1 tablet PO DAILY 03/02/22 11/07/24 Unknown History tablet (Entresto) tramadol 50 mg tablet 50 mg PO Q4-6H PRN 03/02/22 11/07/24 Unknown History cholecalciferol (vitamin D3) 50 50 mcg PO DAILY 10/27/22 11/07/24 Unknown History mcg (2,000 unit) capsule clopidogrel 75 mg tablet 75 mg PO DAILY 05/15/24 11/07/24 Unknown History Allergies Allergy/AdvReac Type Severity Reaction Status Date / Time Penicillins Allergy Unknown Hives Verified 12/29/24 14:41 Review of Systems Review of Systems: All systems reviewed & are unremarkable except as noted in HPI and below Constitutional: Constitutional: Reports no additional constitutional complaints Eyes: Eyes: Reports no additional eye complaints ENT: Reports system reviewed and no additional complaints, except as documented Cardiovascular: Cardiovascular: Reports as per HPI Respiratory: Respiratory: Reports as per HPI Gastrointestinal: Gastrointestinal: Reports no additional gastrointestinal complaints Musculoskeletal: Musculoskeletal: Reports as per HPI REPLACED BY [facility] Family History Family History Father Acute myocardial infarction Other Carcinoma of colon Hypertension Social History Social History Alcohol intake: never Do You Feel Safe in your Home?: Yes Lack of Transportation: No Lack of Food: Never True Current Housing: I Have Housing Concerned About Future Housing: No Difficulty Paying Gas/Electric Bills: No Difficulty Paying for Meds: No Currently Unemployed: No Education: High School Diploma/GED Difficulty w/ Childcare or Family Care: No Living arrangements: with family Gender identity (if verbalized by the patient): Male Exam Narrative: GENERAL: Well-appearing, well-nourished, and in no acute distress. HEAD: Normocephalic, atraumatic. EYES: PERRLA and EOMI. ENT: Nares clear, no rhinorrhea or epistaxis. Mucous membranes moist. NECK: Supple. CHEST: Clear to auscultation. No respiratory distress. HEART: Irregularly irregular I slightly tachycardic. No murmur heard. Normal peripheral pulses. ABDOMEN: Soft, nontender, nondistended, normal active bowel sounds. EXTREMITIES: Normal range of motion. 1+ edema. SKIN: Warm, dry, no rash. NEURO: No focal deficits. Alert and oriented x3. PSYCH: Normal mood and affect. Course Course Emergency Course: Notified patient and his about his lab work and the CT findings. Advised for admission however and patient and his declined days states that he be been monitored at [facility] and they prefer to go home. I did inform him about his elevated troponin level. He states that he would take chances. Vital Signs Vital signs: Vital Signs Temperature 38.0 C H 12/29/24 14:44 Pulse Rate 150 H 12/29/24 14:44 Respiratory Rate 16 12/29/24 14:44 Blood Pressure 121/68 12/29/24 14:44 Pulse Oximetry 95 12/29/24 14:44 Oxygen Delivery Room Air 12/29/24 14:44 Temperature 38.0 C H 12/29/24 14:44 Pulse Rate 124 H 12/29/24 15:26 Respiratory Rate 23 H 12/29/24 15:26 Blood Pressure 123/71 12/29/24 15:26 Pulse Oximetry 96 12/29/24 15:26 Oxygen Delivery Room Air 12/29/24 15:30 MDM - SOB/Dyspnea MDM Narrative Medical decision making narrative: 79-year-old with a history of atrial fibrillation, CAD, CHF here with shortness of breath, confusion most likely from a dog's will do a CT scan of the head, lab work. Differential Diagnosis Differential diagnosis: Likely congestive heart failure Medical Records Attestation: I reviewed the patient's medical records. Lab Data Attestation: I reviewed the patient's lab results. 12/29/24 15:26 12/29/24 15:26 Labs: Lab Results 12/29/24 Range/Units 15:26 WBC 11.5 H (4.5-10.0) K/mm3 RBC 3.83 L (4.6-6.20) M/mm3 Hgb 11.9 L (14.0-18.0) g/dL Hct 35.3 L (42.0-52.0) % MCV 92.2 (80-100) fl MCH 31.1 (26-34) pg MCHC 33.7 (32-36) g/dl RDW 12.2 (11.5-14.5) % Plt Count 127 L (150-375) k/mm3 MPV 11.2 H (7.4-10.4) fl Immature Gran % (Auto) 0.3 (0-0.5) % Neut % (Auto) 86.5 H (45.5-73.1) % Lymph % (Auto) 4.2 L (18.3-44.2) % Gordon % (Auto) 8.5 (2.6-8.5) % Eos % (Auto) 0.2 (0-4.4) % Baso % (Auto) 0.3 (0.2-1.2) % Lymph # (Auto) 0.48 L (0.9-3.2) K/mm3 Gordon # (Auto) 1.0 H (0.1-0.6) K/mm3 Eos # (Auto) 0.0 (0-0.3) K/mm3 Baso # (Auto) 0.0 (0.0-0.1) K/mm3 Abs Immat Gran (auto) 0.04 H (0.00-0.031) K/mm3 Absolute Neuts (auto) 9.9 H (1.3-6.7) K/mm3 Absolute Nucleated RBC 0.000 (0.0-0.012) K/mm3 Nucleated RBC % 0.0 (0.0-0.2) % % Immature Plt Fraction 6.9 (0.9-11.2) % PT 13.9 (11.1-14.7) Seconds INR 1.1 APTT 33.8 (22.3-36.8) Seconds Sodium 131 L (137-145) mmol/L Potassium 3.7 (3.4-5.0) mmol/L Chloride 100 (98-107) mmol/L Carbon Dioxide 20 L (22-30) mmol/L Anion Gap 11 (4-12) mmol/L BUN 14 (9-20) mg/dL Creatinine 1.50 H (0.7-1.3) mg/dL Estim Creat Clear Calc 33 ml/min Estimated GFR 45 L (59 - ) Glucose 126 H (65-110) mg/dL Calcium 9.0 (8.4-10.2) mg/dL Total Bilirubin 1.4 H (0.2-1.3) mg/dL AST 20 (17-59) U/L ALT 13 (6-50) U/L Alkaline Phosphatase 75 (38-126) U/L Troponin I 0.068 H* (0.000-0.034) ng/mL NT-Pro-B Natriuret Pep 70865 H (19.9-100) pg/mL Total Protein 7.1 (6.3-8.2) g/dL Albumin 4.0 (3.5-5.1) g/dL Imaging Data Radiologist's impression: ITS Impressions Chest X-Ray 11/07/25 15:46 Impression: Mild CHF Head CT 12/29/24 17:36 Impression: 1.No acute intracranial abnormality. ECG Data EKG #1: ECG completion date: 12/29/24 ECG completion time: 14:52 EKG Interpretation: tachycardia (133), atrial fibrillation, no ectopy and normal QRS Discharge Plan Discharge Clinical Impression: Elevated troponin I level Congestive heart failure Qualifiers: Heart failure type: combined systolic and diastolic Heart failure chronicity: acute on chronic Qualified Code(s): I50.43 - Acute on chronic combined systolic (congestive) and diastolic (congestive) heart failure Back pain Qualifiers: Back pain location: low back pain Chronicity: chronic Back pain laterality: right Sciatica presence: without sciatica Qualified Code(s): M54.50 - Low back pain, unspecified Patient Disposition: Left Against Medical Advice Condition: Stable Patient Language: Danish Prescriptions: No Action cholecalciferol (vitamin D3) 50 mcg (2,000 unit) capsule 50 mcg PO DAILY atorvastatin 20 mg tablet 20 mg PO DAILY acyclovir 400 mg tablet 400 mg PO BID carvedilol 6.25 mg tablet 6.25 mg PO Q12H Rx Instructions: must administer with a meal/food Entresto 24-26 mg tablet 1 tablet PO DAILY furosemide 20 mg tablet 20 mg PO .PRN lorazepam 0.5 mg tablet 0.5 mg PO .take 3 tablets QHS pantoprazole 40 mg tablet,delayed release (DR/EC) 40 mg PO DAILY tramadol 50 mg tablet 50 mg PO Q4-6H PRN Jardiance 10 mg tablet 10 mg PO DAILY clopidogrel 75 mg tablet 75 mg PO DAILY Follow-up/Referrals: Sarah,DULCE MARIA Hendrix [Primary Care Provider, Unknown] Time of Disposition: 18:20
== END 2024-12-29 18:21 | disposition left against medical advice (07) ==
PROVIDERS: Emergency Provider Family Medicine; PCP Physician Assistant
DX: I50.43 Acute on chronic combined systolic (congestive) and diastolic (congestive) heart failure (principal); I25.10 Atherosclerotic heart disease of native coronary artery without angina pectoris; M54.50 Low back pain, unspecified; I48.20 Chronic atrial fibrillation, unspecified; R94.31 Abnormal electrocardiogram [ECG] [EKG]; Z79.899 Other long term (current) drug therapy; Z79.84 Long term (current) use of oral hypoglycemic drugs; Z79.02 Long term (current) use of antithrombotics/antiplatelets
CPT/HCPCS: 36415; 70450; 71046; 80053; 83880; 84484; 85025; 85055; 85610; 85730; 93005; 99284